=== PATIENT | male | born 1930 | race Caucasian/White ===

== ENCOUNTER 2019-05-27 10:05 | Inpatient (IN) ==
[2019-05-27] MEDS ORDERED: 0.9 % Sodium Chloride 1,000 ML IVC ONE (10:11)
[2019-05-27 10:48] LABS: Basophils % 0.4 %; Eosinophils % 0.9 %; Mean Corpuscular Volume 100.8 fL (83.0-100.0); Monocytes % 14.8 %; Segmented Neutrophils % 67.5 %
[2019-05-27 10:50] LABS: Eosinophils # 0.1 K/mcL (0.0-0.6); Hematocrit 36.2 % (37.5-50.1); Hemoglobin 11.8 g/dL (12.9-16.9); Immature Granulocytes % 0.4 % (0-4); Immature Platelets 6.8 % (1.1-6.1); Lymphocytes # 1.3 K/mcL (0.6-4.6); Mean Corpuscular HGB Conc 32.6 g/dL (31.6-35.5); Mean Corpuscular Hemoglobin 32.9 pg (28.0-33.3); Mean Platelet Volume 11.2 fL (9.4-12.4); Monocytes # 1.2 K/mcL (0.0-1.3); Neutrophils # 5.4 K/mcL (1.6-8.9); Red Blood Count 3.59 M/mcL (4.19-5.50)
[2019-05-27 10:53] LABS: Platelet Count 84 K/mcL (140-400)
[2019-05-27 10:54] LABS: INR 1.1; Prothrombin Time 12.1 Seconds (9.4-12.1)
[2019-05-27 11:08] LABS: Alanine Aminotransferase 16 Units/L (7-52); Albumin 3.7 g/dL (3.5-5.7); Albumin/Globulin Ratio 1.4 (1.1-2.2); Alkaline Phosphatase 63 Units/L (34-104); Aspartate Amino Transferase 20 Units/L (13-39); BUN/Creatinine Ratio 28 (6-26); Bilirubin,Direct 0.2 mg/dL (0.0-0.2); Bilirubin,Indirect 0.6 mg/dL (0.0-1.2); Bilirubin,Total 0.8 mg/dL (0.3-1.0); Blood Urea Nitrogen 44 mg/dL (8-23); Calcium 8.7 mg/dL (8.6-10.3); Carbon Dioxide 25 mEq/L (23-29); Chloride 105 mEq/L (98-107); Creatine Kinase 117 Units/L (30-223); Ethanol < 10 mg/dL (Less than 10); Globulin 2.7 g/dL (2.4-3.5); Glucose 100 mg/dL (70-105); Osmolality,Calculated 299 (280-300); Sodium 139 mEq/L (136-145); Total Protein 6.4 g/dL (6.4-8.9); Troponin I < 0.03 ng/mL (< 0.04); eGFR For African Americans 50 (> 60); eGFR For Non-African Americans 41 (> 60)
--- NOTE | 2019-05-27 11:10 | Emergency Department Note ---
Disposition Clinical Impression: Thrombocytopenia, Acute confusion due to infection Disposition: Admitted As Inpatient Condition: Fair Referrals: Thiago Cid DO [Primary Care Provider] - Forms: ED Satisfaction Letter, Work/School Release Time of Disposition: 13:59 General Adult HPI - General Chief complaint: ED General Medical Stated complaint: confusion Time Seen by Provider: 05/27/19 10:11 Source: patient, EMS Limitations: no limitations Nursing Notes Reviewed: Yes Vital Signs Reviewed: Yes - History of Present Illness HPI Narrative: 89-year-old male seen on Sunday for bleeding somewhere was worked up by Dr. Edgar Jarvis and Dr. Escobedo please see copy their note for details of that encounter patient was discharged with the diagnosis of thrombocytopenia and acute urinary retention which was cleared with Crespo catheter. Patient has been having increasingly altered mental status per daughter and was at bedside he came in by EMS he has been having volitional tremor of his hands that is so severe that he cannot feed himself. He has not been acting himself he has been mostly bedbound for the past 24 hours. This been no blood in his urine or stools this been no fever or vomiting he has been eating although his has to feed him. Drs. Cid is a primary care provider the contacted the office and they recommended that he return to the emergency department for reevaluation and admission Pain Scale: 0 - Related Data Allergies Allergy/AdvReac Type Severity Reaction Status Date / Time amitriptyline [From Elavil] Allergy Agitated Verified 01/21/16 13:07 carisoprodol [From Rela] Allergy Agitated Verified 01/21/16 13:07 hydromorphone [From Dilaudid] Allergy Agitated Verified 01/21/16 13:07 Limitations: ROS unobtainable due to patients medical condition Past Medical History - Past Medical History Attestation: Yes The following information was validated with the patient. Source: old records reviewed, obtained from family Medical history: Reports: hyperlipidemia, other Psychiatric history: Reports: depression - Social History Smoking Status: Former smoker Smokeless Tobacco Status: No Alcohol use: Reports: none Drug use: Reports: none Physical Exam - General Limitations: no limitations General appearance: alert, in no apparent distress - Head Head exam: atraumatic, normocephalic - Eye Eye exam: Present: normal appearance, PERRL, EOMI - ENT ENT exam: normal oropharynx, mucous membranes dry - Neck Neck exam: Present: normal inspection, full ROM - Chest Chest inspection: Present: normal inspection, symmetric chest wall rise - Respiratory Respiratory exam: Present: normal lung sounds bilaterally - Cardiovascular Cardiovascular exam: Present: regular rate, irregular rhythm - Abdominal Exam Abdominal exam: Present: soft, Non-Tender - Extremities Exam Extremities exam: Present: normal inspection, full ROM - Expanded Lower Extremity Exam Neurovascular/Tendon exam: Present: normal capillary refill Gait: not tested/not observed - Back Exam Back exam: Present: normal inspection, full ROM - Neurological Exam Neurological exam: Present: alert (Does not quite know where he is and follow some commands with difficulty) - Psychiatric Psychiatric exam: Present: agitated - Skin Skin exam: Present: warm, dry, intact Course - Reevaluation(s) Reevaluation #1: Patient will undergo ED workup including repeat CT scans of the head and abdomen and pelvis labs chest x-ray urinalysis with a bladder scan. Admission anticipated. Patient's CBC shows a worsening anemia his hemoglobin was 13 it is not 11.8 from 2 days ago platelets are 84,000 or 86,002 days ago. When is a little higher was 33 now to 44 but his creatinine is much improved and was 2.2 on Sunday and it lower today. Awaiting for chest x-ray and CT scans. Ordered. Admission disposition pending Time: 11:25 Reevaluation #2: The workup is complete urinalysis shows too numerous to count RBCs and 15-30 WBCs with urine culture pending discussed case with the hospitalist , except to the patient for admission. Recommended that we also get a set of blood cultures which I did. I gave milligram of Rocephin intravenously for suspected urinary tract infection status post instrumentation with Crespo. The Crespo was per CT scan results and the prostatic urethra had not deflate the balloon and push it forward and reinflate. Crespo is draining. Patient admitted in stable condition Time: 13:57 Vital Signs Temperature 98.4 F 05/27/19 10:08 Pulse Rate 96 05/27/19 10:08 Respiratory Rate 18 05/27/19 10:08 Blood Pressure 157/56 05/27/19 10:08 O2 Sat by Pulse Oximetry 100 05/27/19 10:08 Temperature 98.4 F 05/27/19 10:08 Pulse Rate 94 05/27/19 12:20 Respiratory Rate 20 05/27/19 11:12 Blood Pressure 126/58 05/27/19 12:20 O2 Sat by Pulse Oximetry 98 05/27/19 12:20 Oxygen Delivery Oxygen Delivery Room Air Medical Decision Making - Medical Records Medical records reviewed: Yes I reviewed the patient's medical records. - Lab Data Lab results reviewed: Yes I reviewed the patient's lab results. Result diagrams: 05/27/19 10:27 05/27/19 10:27 Lab Results 05/27/19 05/27/19 05/27/19 Range/Units 10:27 10:27 10:27 WBC 8.0 (4.3-11.1) K/mcL RBC 3.59 L (4.19-5.50) M/mcL Hgb 11.8 L D (12.9-16.9) g/dL Hct 36.2 L (37.5-50.1) % MCV 100.8 H (83.0-100.0) fL MCH 32.9 (28.0-33.3) pg MCHC 32.6 (31.6-35.5) g/dL RDW 13.0 (11.5-14.5) % Plt Count 84 L (140-400) K/mcL MPV 11.2 (9.4-12.4) fL Immature Gran % 0.4 (0-4) % Seg Neutrophils % 67.5 % Lymphocytes % 16.0 % Monocytes % 14.8 % Eosinophils % 0.9 % Basophils % 0.4 % Neutrophils # 5.4 (1.6-8.9) K/mcL Lymphocytes # 1.3 (0.6-4.6) K/mcL Monocytes # 1.2 (0.0-1.3) K/mcL Eosinophils # 0.1 (0.0-0.6) K/mcL Basophils # 0.0 (0.0-0.2) K/mcL Immature Plt Fraction 6.8 H (1.1-6.1) % PT 12.1 (9.4-12.1) Seconds INR 1.1 APTT 46.0 H (26.0-36.0) Seconds Sodium 139 (136-145) mEq/L Potassium 4.0 (3.5-5.1) mEq/L Chloride 105 (98-107) mEq/L Carbon Dioxide 25 (23-29) mEq/L BUN 44 H (8-23) mg/dL Creatinine 1.58 H (0.70-1.30) mg/dL Est GFR ( Amer) 50 L (> 60) Est GFR (Non-Af Amer) 41 L (> 60) BUN/Creatinine Ratio 28 H (6-26) Glucose 100 (70-105) mg/dL Calculated Osmolality 299 (280-300) Calcium 8.7 (8.6-10.3) mg/dL Total Bilirubin 0.8 (0.3-1.0) mg/dL Direct Bilirubin 0.2 (0.0-0.2) mg/dL Indirect Bilirubin 0.6 (0.0-1.2) mg/dL AST 20 (13-39) Units/L ALT 16 (7-52) Units/L Alkaline Phosphatase 63 (34-104) Units/L Ammonia (16-53) mcmol/L Creatine Kinase 117 (30-223) Units/L Troponin I < 0.03 (< 0.04) ng/mL Serum Total Protein 6.4 (6.4-8.9) g/dL Albumin 3.7 (3.5-5.7) g/dL Globulin 2.7 (2.4-3.5) g/dL Albumin/Globulin Ratio 1.4 (1.1-2.2) TSH (0.340-5.600) mcIU/mL Urine Color (Yellow) Urine Clarity (Clear) Urine pH (5.0-8.0) pH Units Ur Specific [place] (1.010-1.025) Urine Protein (Neg-Trace) mg/dL Urine Glucose (UA) (Normal) mg/dL Urine Ketones (Negative) mg/dL Urine Blood (Negative) Urine Nitrite (Negative) Urine Bilirubin (Negative) Urine Urobilinogen (Normal) mg/dL Ur Leukocyte Esterase (Negative) Urine Microscopic RBC (0-3) per hpf Urine Microscopic WBC (0-3) per hpf Ur Squamous Epith Cells (None-Few) per lpf Urine Bacteria (None-Few) per hpf Hyaline Casts (None-Few) per lpf Ur Culture Indicated? (NO) Urine Opiates Screen (Jouyjl=854) ng/mL Ur Buprenorphine Scrn (Cutoff=5) ng/mL Ur Barbiturates Screen (Oyyzjf=372) ng/mL Ur Phencyclidine Scrn (Cutoff=25) ng/mL Ur Amphetamines Screen (Gzunhb=2581) ng/mL U Benzodiazepines Scrn (Rqqunl=699) ng/mL Urine Cocaine Screen (Cutoff= 300) ng/mL U Marijuana (THC) Screen (Cutoff = 50) ng/mL Ur Drug Screen Interp Ethyl Alcohol < 10 (Less than 10) mg/dL 05/27/19 05/27/19 05/27/19 Range/Units 10:27 10:27 13:21 WBC (4.3-11.1) K/mcL RBC (4.19-5.50) M/mcL Hgb (12.9-16.9) g/dL Hct (37.5-50.1) % MCV (83.0-100.0) fL MCH (28.0-33.3) pg MCHC (31.6-35.5) g/dL RDW (11.5-14.5) % Plt Count (140-400) K/mcL MPV (9.4-12.4) fL Immature Gran % (0-4) % Seg Neutrophils % % Lymphocytes % % Monocytes % % Eosinophils % % Basophils % % Neutrophils # (1.6-8.9) K/mcL Lymphocytes # (0.6-4.6) K/mcL Monocytes # (0.0-1.3) K/mcL Eosinophils # (0.0-0.6) K/mcL Basophils # (0.0-0.2) K/mcL Immature Plt Fraction (1.1-6.1) % PT (9.4-12.1) Seconds INR APTT (26.0-36.0) Seconds Sodium (136-145) mEq/L Potassium (3.5-5.1) mEq/L Chloride (98-107) mEq/L Carbon Dioxide (23-29) mEq/L BUN (8-23) mg/dL Creatinine (0.70-1.30) mg/dL Est GFR ( Amer) (> 60) Est GFR (Non-Af Amer) (> 60) BUN/Creatinine Ratio (6-26) Glucose (70-105) mg/dL Calculated Osmolality (280-300) Calcium (8.6-10.3) mg/dL Total Bilirubin (0.3-1.0) mg/dL Direct Bilirubin (0.0-0.2) mg/dL Indirect Bilirubin (0.0-1.2) mg/dL AST (13-39) Units/L ALT (7-52) Units/L Alkaline Phosphatase (34-104) Units/L Ammonia 27 (16-53) mcmol/L Creatine Kinase (30-223) Units/L Troponin I (< 0.04) ng/mL Serum Total Protein (6.4-8.9) g/dL Albumin (3.5-5.7) g/dL Globulin (2.4-3.5) g/dL Albumin/Globulin Ratio (1.1-2.2) TSH 2.295 (0.340-5.600) mcIU/mL Urine Color Yellow (Yellow) Urine Clarity Cloudy A (Clear) Urine pH 6.0 (5.0-8.0) pH Units Ur Specific [place] 1.022 (1.010-1.025) Urine Protein 100 H (Neg-Trace) mg/dL Urine Glucose (UA) Normal (Normal) mg/dL Urine Ketones 15 H (Negative) mg/dL Urine Blood Large H (Negative) Urine Nitrite Negative (Negative) Urine Bilirubin Negative (Negative) Urine Urobilinogen 2.0 H (Normal) mg/dL Ur Leukocyte Esterase Moderate H (Negative) Urine Microscopic RBC TNTC H (0-3) per hpf Urine Microscopic WBC 15-30 H (0-3) per hpf Ur Squamous Epith Cells Many H (None-Few) per lpf Urine Bacteria None Seen (None-Few) per hpf Hyaline Casts None Seen (None-Few) per lpf Ur Culture Indicated? YES A (NO) Urine Opiates Screen (Diyhqg=227) ng/mL Ur Buprenorphine Scrn (Cutoff=5) ng/mL Ur Barbiturates Screen (Pytngh=310) ng/mL Ur Phencyclidine Scrn (Cutoff=25) ng/mL Ur Amphetamines Screen (Ughmbq=2610) ng/mL U Benzodiazepines Scrn (Tekwpq=880) ng/mL Urine Cocaine Screen (Cutoff= 300) ng/mL U Marijuana (THC) Screen (Cutoff = 50) ng/mL Ur Drug Screen Interp Ethyl Alcohol (Less than 10) mg/dL 05/27/19 Range/Units 13:21 WBC (4.3-11.1) K/mcL RBC (4.19-5.50) M/mcL Hgb (12.9-16.9) g/dL Hct (37.5-50.1) % MCV (83.0-100.0) fL MCH (28.0-33.3) pg MCHC (31.6-35.5) g/dL RDW (11.5-14.5) % Plt Count (140-400) K/mcL MPV (9.4-12.4) fL Immature Gran % (0-4) % Seg Neutrophils % % Lymphocytes % % Monocytes % % Eosinophils % % Basophils % % Neutrophils # (1.6-8.9) K/mcL Lymphocytes # (0.6-4.6) K/mcL Monocytes # (0.0-1.3) K/mcL Eosinophils # (0.0-0.6) K/mcL Basophils # (0.0-0.2) K/mcL Immature Plt Fraction (1.1-6.1) % PT (9.4-12.1) Seconds INR APTT (26.0-36.0) Seconds Sodium (136-145) mEq/L Potassium (3.5-5.1) mEq/L Chloride (98-107) mEq/L Carbon Dioxide (23-29) mEq/L BUN (8-23) mg/dL Creatinine (0.70-1.30) mg/dL Est GFR ( Amer) (> 60) Est GFR (Non-Af Amer) (> 60) BUN/Creatinine Ratio (6-26) Glucose (70-105) mg/dL Calculated Osmolality (280-300) Calcium (8.6-10.3) mg/dL Total Bilirubin (0.3-1.0) mg/dL Direct Bilirubin (0.0-0.2) mg/dL Indirect Bilirubin (0.0-1.2) mg/dL AST (13-39) Units/L ALT (7-52) Units/L Alkaline Phosphatase (34-104) Units/L Ammonia (16-53) mcmol/L Creatine Kinase (30-223) Units/L Troponin I (< 0.04) ng/mL Serum Total Protein (6.4-8.9) g/dL Albumin (3.5-5.7) g/dL Globulin (2.4-3.5) g/dL Albumin/Globulin Ratio (1.1-2.2) TSH (0.340-5.600) mcIU/mL Urine Color (Yellow) Urine Clarity (Clear) Urine pH (5.0-8.0) pH Units Ur Specific [place] (1.010-1.025) Urine Protein (Neg-Trace) mg/dL Urine Glucose (UA) (Normal) mg/dL Urine Ketones (Negative) mg/dL Urine Blood (Negative) Urine Nitrite (Negative) Urine Bilirubin (Negative) Urine Urobilinogen (Normal) mg/dL Ur Leukocyte Esterase (Negative) Urine Microscopic RBC (0-3) per hpf Urine Microscopic WBC (0-3) per hpf Ur Squamous Epith Cells (None-Few) per lpf Urine Bacteria (None-Few) per hpf Hyaline Casts (None-Few) per lpf Ur Culture Indicated? (NO) Urine Opiates Screen Negative (Dwamrl=810) ng/mL Ur Buprenorphine Scrn Negative (Cutoff=5) ng/mL Ur Barbiturates Screen Negative (Tkjzjd=455) ng/mL Ur Phencyclidine Scrn Negative (Cutoff=25) ng/mL Ur Amphetamines Screen Negative (Ygcjcn=1872) ng/mL U Benzodiazepines Scrn Negative (Mizqty=045) ng/mL Urine Cocaine Screen Negative (Cutoff= 300) ng/mL U Marijuana (THC) Screen Negative (Cutoff = 50) ng/mL Ur Drug Screen Interp See Below Ethyl Alcohol (Less than 10) mg/dL - Radiology Data Radiology results reviewed: Yes I reviewed the patient's radiology results. - EKG Data EKG #1 EKG attestation: Yes I reviewed and interpreted this EKG. EKG results narrative: Twelve-lead EKG interpreted without the benefit of Cardiologic assistance shows atrial fibrillation rate controlled at 94 bpm no acute ischemic changes noted. No acute changes when compared to prior EKG dated 01/21/2016
[2019-05-27 13:31] LABS: Bilirubin,Urine Negative (Negative); Blood,Urine Large (Negative); Clarity,Urine Cloudy (Clear); Color,Urine Yellow (Yellow); Glucose,Urine (UA) Normal (Normal); Ketones,Urine 15 mg/dL (Negative); Leukocyte Esterase,Urine Moderate (Negative); Nitrite,Urine Negative (Negative); Protein,Urine 100 mg/dL (Neg-Trace); Specific Gravity,Urine 1.022 (1.010-1.025)
[2019-05-27 13:32] LABS: Bacteria,Urine None Seen per hpf (None-Few); Hyaline Casts,Urine None Seen per lpf (None-Few); RBC,Urine TNTC per hpf (0-3); Squamous Epithelial Cell,Urine Many per lpf (None-Few); WBC,Urine 15-30 per hpf (0-3)
[2019-05-27 13:42] LABS: Amphetamine Screen,Urine Negative ng/mL (Cutoff=1000); Barbiturate Screen,Urine Negative ng/mL (Cutoff=200); Benzodiazepines Screen,Urine Negative ng/mL (Cutoff=200); Cannabinoid Screen,Urine Negative ng/mL (Cutoff = 50); Cocaine Screen,Urine Negative ng/mL (Cutoff= 300); Opiate Screen,Urine Negative ng/mL (Cutoff=300); Phencyclidine Screen,Urine Negative ng/mL (Cutoff=25)
[2019-05-27] MEDS ORDERED: cefTRIAXone 1,000 MG in 0.9 % Sodium Chloride Mini Bag 100 ML IVPB ONE (13:56)
[2019-05-27] MEDS ORDERED: Naloxone 0.4 MG/ML INJ IVP PRN (14:45)
[2019-05-27] MEDS ORDERED: Ondansetron ODT 4 MG TAB.RAPDIS SL PRN (14:45)
[2019-05-27 16:58] LABS: Thyroid Stimulating Hormone 1.391 mcIU/mL (0.340-5.600)
--- NOTE | 2019-05-27 18:16 | Urology - Consult Note ---
Date of Encounter: 05/27/19 Time of Encounter: 18:16 - Assessment and Plan (1) Bladder mass Current Visit: Yes Status: Acute Assessment and plan: Upon review of the CT scan I am unsure if the mass within the bladder is a blood clot, enlarged prostate or bladder mass. At this time the patient's urine is clear and he had a urinalysis prior to admission which showed no blood. Recommend at this time to continue with catheter no urgent need for cystoscopy. (2) Elevated serum creatinine Current Visit: Yes Status: Acute Assessment and plan: Patient serum creatinine appears at baseline. (3) Acute confusion Current Visit: Yes Status: Acute Assessment and plan: Unsure of cause of confusion at this time. Patient's urinalysis not necessarily consistent with infection. Await urine culture (4) Acute urinary retention Current Visit: No Status: Acute Assessment and plan: Patient will continue with catheterization at this time. Patient will require cystoscopic evaluation of his bladder in the future. Based on CT scan findings I have some concern that he could have a neurogenic bladder and has had long- standing urinary retention. I discussed this with the patient's family. We will continue to follow along closely. Urology CN:HPI Consult date: 05/27/19 Reason for consult Urology: Other (urinary retention) Requesting physician: King Sweeney History of present illness: Jan is a 89-year-old male who was recently in the emergency department 2 days ago secondary to inability to void. Catheter was placed with an unknown volume of urine drained. Patient had a CT scan performed at that time which showed a thickened bladder wall as well as markedly enlarged prostate. History is difficult to obtain secondary to patient mental status. All history was obtained from family. According the patient's family he had a TURP performed in 1997 and then subsequently had another TURP performed in 2005. Patient believes that he has been having some trouble with voiding for the past few weeks if not months. He did an increase in nocturia as well as post void dribbling. Patient's mental status significantly declined today and he was brought to the emergency department. Urinalysis was consistent with recent catheterization but not necessarily an infection at this time. Awaiting urine culture. Repeat CT scan showed thickened bladder wall with possible bladder mass versus enlarged prostate. Past Med Surg Social Fam HX - Past Medical History Medical history: hyperlipidemia, other Additional medical history: vagal nerve response Psychiatric history: depression - Past Surgical History Additional surgical history: hemroid surg - Social History Smoking Status: Former smoker Smokeless Tobacco Status: No Alcohol use: none Drug use: none - Family History Son Name: Son with history of urinary retention. Medications and Allergies Doxepin 150 mg PO QPM 05/27/19 [History] Lovastatin 40 mg PO DAILY 05/27/19 [History] Allergy/AdvReac Type Severity Reaction Status Date / Time amitriptyline [From Elavil] Allergy Agitated Verified 01/21/16 13:07 carisoprodol [From Rela] Allergy Agitated Verified 01/21/16 13:07 hydromorphone [From Dilaudid] Allergy Agitated Verified 01/21/16 13:07 Review of Systems ROS unobtainable: due to mental status Exam Initial Vital Signs Temp Pulse Resp BP Pulse Ox 98.4 F 96 18 157/56 100 05/27/19 10:08 05/27/19 10:08 05/27/19 10:08 05/27/19 10:08 05/27/19 10:08 General/Neuological: Patient awake but not oriented Eyes: normal pupils, non-icteric Neck: no lymphadenopathy noted, supple to touch Cardiovascular: RRR, no murmurs Respiratory: normal respiratory effort, clear bilaterally ABD: soft, nontender, no masses palpated, good bowel sounds Back: no pain on percussion bilaterally : normal phallus, normal scrotum, testicles and epididymides normal, urethral meatus normal. Catheter in place draining clear urine Skin: no rashes noted Musculoskeletal: Full range of motion 4, patient with tremor of upper extremity with hands clapping Urology Results - Labs 05/27/19 10:27 05/27/19 10:27 Abnormal lab results RBC 3.59 M/mcL (4.19-5.50) L 05/27/19 10:27 Hgb 11.8 g/dL (12.9-16.9) L D 05/27/19 10:27 Hct 36.2 % (37.5-50.1) L 05/27/19 10:27 MCV 100.8 fL (83.0-100.0) H 05/27/19 10:27 Plt Count 84 K/mcL (140-400) L 05/27/19 10:27 Immature Plt Fraction 6.8 % (1.1-6.1) H 05/27/19 10:27 ESR 13 mm/hr (0-10) H 05/27/19 16:06 APTT 46.0 Seconds (26.0-36.0) H 05/27/19 10:27 BUN 44 mg/dL (8-23) H 05/27/19 10:27 1.58 mg/dL (0.70-1.30) H 05/27/19 10:27 Est GFR ( Amer) 50 (> 60) L 05/27/19 10:27 Est GFR (Non-Af Amer) 41 (> 60) L 05/27/19 10:27 28 (6-26) H 05/27/19 10:27 30 mg/L (Less than 10) H 05/27/19 16:06 Cloudy (Clear) A 05/27/19 13:21 100 mg/dL (Neg-Trace) H 05/27/19 13:21 15 mg/dL (Negative) H 05/27/19 13:21 Large (Negative) H 05/27/19 13:21 2.0 mg/dL (Normal) H 05/27/19 13:21 Ur Leukocyte Esterase Moderate (Negative) H 05/27/19 13:21 TNTC per hpf (0-3) H 05/27/19 13:21 15-30 per hpf (0-3) H 05/27/19 13:21 Ur Squamous Epith Cells Many per lpf (None-Few) H 05/27/19 13:21 Ur Culture Indicated? YES (NO) A 05/27/19 13:21 Diabetes panel 05/27/19 Range/Units 10:27 Sodium 139 (136-145) mEq/L Potassium 4.0 (3.5-5.1) mEq/L Chloride 105 (98-107) mEq/L Carbon Dioxide 25 (23-29) mEq/L BUN 44 H (8-23) mg/dL Creatinine 1.58 H (0.70-1.30) mg/dL Glucose 100 (70-105) mg/dL Calcium 8.7 (8.6-10.3) mg/dL AST 20 (13-39) Units/L ALT 16 (7-52) Units/L Alkaline Phosphatase 63 (34-104) Units/L Albumin 3.7 (3.5-5.7) g/dL Thyroid panel 05/27/19 05/27/19 Range/Units 10:27 16:06 TSH 2.295 1.391 (0.340-5.600) mcIU/mL Calcium panel 05/27/19 Range/Units 10:27 Calcium 8.7 (8.6-10.3) mg/dL Albumin 3.7 (3.5-5.7) g/dL Pituitary panel 05/27/19 05/27/19 05/27/19 Range/Units 10:27 10:27 16:06 Sodium 139 (136-145) mEq/L Potassium 4.0 (3.5-5.1) mEq/L Chloride 105 (98-107) mEq/L Carbon Dioxide 25 (23-29) mEq/L BUN 44 H (8-23) mg/dL Creatinine 1.58 H (0.70-1.30) mg/dL Glucose 100 (70-105) mg/dL Calcium 8.7 (8.6-10.3) mg/dL TSH 2.295 1.391 (0.340-5.600) mcIU/mL Adrenal panel 05/27/19 Range/Units 10:27 Sodium 139 (136-145) mEq/L Potassium 4.0 (3.5-5.1) mEq/L Chloride 105 (98-107) mEq/L Carbon Dioxide 25 (23-29) mEq/L BUN 44 H (8-23) mg/dL Creatinine 1.58 H (0.70-1.30) mg/dL Glucose 100 (70-105) mg/dL Calcium 8.7 (8.6-10.3) mg/dL Total Bilirubin 0.8 (0.3-1.0) mg/dL AST 20 (13-39) Units/L ALT 16 (7-52) Units/L Alkaline Phosphatase 63 (34-104) Units/L Albumin 3.7 (3.5-5.7) g/dL All other labs normal. - Imaging CT scan - abdomen: image reviewed CT scan - pelvis: image reviewed Consult Discharge Plan - Plan Referrals: Thiago Cid DO [Primary Care Provider] -
--- NOTE | 2019-05-27 18:55 | Internal Med History&Physical ---
Date of Encounter: 05/27/19 Time of Encounter: 18:42 Internal Medicine - H&P: HPI Chief complaint: Encephalopathy Admitted From: Home Plans for Post Hospital Care: Home History of present illness: Mr. Ibanez is a 89 year old male with history of insomnia, nighttime confusion, and possibly dementia presents with encephalopathy and acute urinary retention. Family notes worsening of confusion over the last 2 weeks which has been rapidly progressive for the last couple days. He has not been acting normally. Not speaking to family. Has a tremor that the family is concerned about. Always playing with his hands and fidgeting. Has not been eating and daughter says that patient has lost 9 pounds in last week. Has not been taking his medications (doxepin and Lovastatin) because whenever his family choose to give him his medications he clenches his teeth. Went to PCP last week and referred to ED for head CT which was within normal limits. Also treated for presumed UTI with nitrofurantoin and completed a 5 day course without improvement of symptoms. Over the next several days, patient's condition progressed rapidly with regards to worsening confusion. Started to experience suprapubic abdominal pain and u rinary retention. Went to ED 05/25 and Crespo placed with over a liter and drainage. Discharge with Crespo from the ED to follow-up with urology however confusion worsened this in the interim so family brought patient to the ED today. In the ED, vital signs stable. No leukocytosis. Platelet count of 84, which is new for patient over the last week. Creatinine of 1.58, which is actually patient's baseline. BUN 28. UDS negative. UA with mild positivity and reflex to culture. CT abdomen and pelvis with large prostate and mass in the bladder that could not be further delineated. Chest x-ray is within normal limits. Admitted to medicine. Past Med Surg Social Fam HX - Past Medical History Medical history: hyperlipidemia, other Additional medical history: vagal nerve response Psychiatric history: depression - Past Surgical History Additional surgical history: hemroid surg - Social History Smoking Status: Former smoker Smokeless Tobacco Status: No Alcohol use: none Drug use: none - Family History Brother Name: Son with history of urinary retention. Hx Family Cardiac Disorders: Yes Internal Medicine - H&P: Meds Doxepin 150 mg PO QPM 05/27/19 [History] Lovastatin 40 mg PO DAILY 05/27/19 [History] Allergy/AdvReac Type Severity Reaction Status Date / Time amitriptyline [From Elavil] Allergy Agitated Verified 01/21/16 13:07 carisoprodol [From Rela] Allergy Agitated Verified 01/21/16 13:07 hydromorphone [From Dilaudid] Allergy Agitated Verified 01/21/16 13:07 ROS unobtainable: due to mental status All Systems PM: A 10-system review of systems was performed and is negative for pertinent findi ngs except as documented above in the HPI. - Constitutional Vitals: Temp Pulse Resp BP Pulse Ox 98.4 F 91 16 143/63 98 05/27/19 15:20 05/27/19 15:20 05/27/19 15:20 05/27/19 15:20 05/27/19 15:20 Exam: General: Ill-appearing and in no acute distress. Fidgety with hands. HEENT: No erythema of posterior pharynx. No exudates. Lymphatics: No mandibular or cervical lymphadenopathy Cardiovascular: RRR. No murmurs. No chest wall tenderness. Lungs: Clear to auscelltation bilaterally. Regular chest rise. Abdomen: Non-tender. No rebound or gaurding. Nl bowel sounds. Extremities: No edema. 2+ pulses radial and pedal pulses Skin: No rahses, abrasions, or contusions. Nl cap refill. Psych: Poor attention but does follow commands. Alert but only oriented to person and place. Neuro: voip network technician II-XII intact. 5/5 strength. No PD. No asterixis. Sensation to light touch and pinprick intact. Internal Med - H&P Results - Labs CBC & Chem 7: 05/27/19 10:27 05/27/19 10:27 Labs: Short CBC 05/27/19 Range/Units 10:27 WBC 8.0 (4.3-11.1) K/mcL Hgb 11.8 L D (12.9-16.9) g/dL Hct 36.2 L (37.5-50.1) % Plt Count 84 L (140-400) K/mcL Neutrophils # 5.4 (1.6-8.9) K/mcL BMP 05/27/19 10:27 Sodium 139 Potassium 4.0 Chloride 105 Carbon Dioxide 25 BUN 44 H Creatinine 1.58 H Glucose 100 Calcium 8.7 Cardiac Enzymes 05/27/19 Range/Units 10:27 Troponin I < 0.03 (< 0.04) ng/mL Liver Function 05/27/19 Range/Units 10:27 Total Bilirubin 0.8 (0.3-1.0) mg/dL Direct Bilirubin 0.2 (0.0-0.2) mg/dL AST 20 (13-39) Units/L ALT 16 (7-52) Units/L Alkaline Phosphatase 63 (34-104) Units/L Albumin 3.7 (3.5-5.7) g/dL Urine 05/27/19 Range/Units 13:21 Urine Color Yellow (Yellow) Urine Clarity Cloudy A (Clear) Urine pH 6.0 (5.0-8.0) pH Units Ur Specific [place] 1.022 (1.010-1.025) Urine Protein 100 H (Neg-Trace) mg/dL Urine Glucose (UA) Normal (Normal) mg/dL - Impressions ITS Impressions Chest X-Ray 05/27/19 10:11 IMPRESSION: 1. No active pulmonary disease. D/ / Branden Moreno MD / Branden Moreno MD Interpreting Provider: Branden Moreno MD Abdomen/Pelvis CT 05/27/19 10:28 IMPRESSION: Enlarged prostate gland with Crespo catheter balloon likely within the prostatic urethra. Decompressed bladder with irregular bladder wall thickening likely related to chronic bladder outlet obstruction. However, suspected hemorrhage in the bladder is also noted. Cystoscopy should be considered to exclude bladder mass. No urinary tract stones or hydronephrosis. Hyperdense lesions in both kidneys most likely representing hemorrhagic cysts. Recommend renal mass protocol CT or MRI for definitive evaluation. No evidence of bowel obstruction. Large amount of stool throughout the colon suggesting constipation. Mild improvement of bowel distention compared to prior exam. Wall thickening of the rectum. This is nonspecific. Recommend colonoscopy if not already performed. D/ / 05/27/2019 12:27:48 Pravin Vargas MD / yasir Interpreting Provider: Pravin Vargas MD Head CT 05/27/19 11:17 IMPRESSION: No acute intracranial abnormality. D/ / Colton Harden MD / Colton Harden MD Interpreting Provider: Colton Harden MD - Assessment and Plan (1) Acute metabolic encephalopathy Current Visit: Yes Status: Acute Assessment and plan: Patient with history of insomnia on doxepin, nighttime confusion, and possibly dementia presents with subacute encephalopathy in the setting of acute urinary retention, normal vitals on admission, physical exam with poor attention, disorientation, and fidgeting with hands but no asterixis or other notable neurological findings, UA mildly positive for infection, and extensive imaging with only a potential bladder mass identified. -Unclear source of patient's encephalopathy -Most likely diagnosis at this time would be urinary tract infection causing encephalopathy however UA was underwhelming -Query whether long-term doxepin use leading to urinary retention and, in turn, leading to a care and further toxicity from doxepin could be related to patient's presentation -Uremia could conceivably be contributing given urinary retention but kidney function has now trended back to normal and symptoms persist -Fidgeting appears consistent with metabolic process such as hepatic encephalopathy but no history of liver disease. We will check ammonia. -Low suspicion for vascular event given no focal deficits and head CT normal -We will check TSH -Suspicion for seizure low -New thrombocytopenia so we will get a peripheral smear to look for schistocytes assessing for TTP -Low concern for central infectious process given no white count, fever, etc. -Query whether inflammatory process or paraneoplastic process (given bladder mass) could be at play given unusual presentation and will assess for this although paraneoplastic syndromes unlikely with bladder cancer PLAN: - Ceftriaxone 1g q24 - HOLD doxepin - Ammonia level - TSH - Peripheral smear - ESR/CRP - Paraneoplastic panel - If not improved with IV antibiotics after 24hrs would consider neuro consult (2) Acute urinary retention Current Visit: No Status: Acute Assessment and plan: Unclear cause. Some of this likely chronic. Concern for bladder mass. - Urology consulting (3) CKD (chronic kidney disease), stage III Current Visit: Yes Status: Acute Assessment and plan: At baseline (4) Bladder mass Current Visit: Yes Status: Acute (5) Thrombocytopenia Current Visit: Yes Status: Acute Assessment and plan: Cause unclear. In setting of encephalopathy prudent to rule out TTP and a peripheral smear will be ordered and reviewed - Time Spent With Patient Total time spent is greater than 50% in coordination of care (as documented) at patient's floor/unit and/or counseling patient: Greater than 35 minutes
[2019-05-27] MEDS ORDERED: Bisacodyl 10 MG RECTAL SUPPOSITORY RC SCH (21:00)
[2019-05-28 06:27] LABS: Basophils % 0.2 %; Red Cell Distribution Width 12.9 % (11.5-14.5)
[2019-05-28 06:29] LABS: Eosinophils # 0.1 K/mcL (0.0-0.6); Eosinophils % 1.5 %; Hematocrit 34.2 % (37.5-50.1); Hemoglobin 11.2 g/dL (12.9-16.9); Immature Granulocytes % 0.3 % (0-4); Lymphocytes # 1.2 K/mcL (0.6-4.6); Lymphocytes % 20.2 %; Mean Corpuscular HGB Conc 32.7 g/dL (31.6-35.5); Mean Corpuscular Hemoglobin 33.3 pg (28.0-33.3); Mean Corpuscular Volume 101.8 fL (83.0-100.0); Mean Platelet Volume 11.6 fL (9.4-12.4); Monocytes # 0.8 K/mcL (0.0-1.3); Monocytes % 13.8 %; Neutrophils # 3.8 K/mcL (1.6-8.9); Red Blood Count 3.36 M/mcL (4.19-5.50); White Blood Count 5.9 K/mcL (4.3-11.1)
[2019-05-28 06:42] LABS: Platelet Count 79 K/mcL (140-400)
[2019-05-28 06:53] LABS: BUN/Creatinine Ratio 30 (6-26); Blood Urea Nitrogen 40 mg/dL (8-23); Calcium 8.8 mg/dL (8.6-10.3); Carbon Dioxide 25 mEq/L (23-29); Chloride 106 mEq/L (98-107); Glucose 98 mg/dL (70-105); Osmolality,Calculated 308 (280-300); Potassium 4.2 mEq/L (3.5-5.1); Sodium 144 mEq/L (136-145); eGFR For African Americans > 60 (> 60); eGFR For Non-African Americans 51 (> 60)
[2019-05-28] MEDS: cefTRIAXone 1,000 MG in Water for inj. (sterile) 10 ML IVP SCH (08:48)
--- NOTE | 2019-05-28 08:50 | Urology Progress Note ---
Date of Encounter: 05/28/19 Time of Encounter: 08:48 - Assessment and Plan (1) Bladder mass Current Visit: Yes Status: Acute (2) Elevated serum creatinine Current Visit: Yes Status: Acute Assessment and plan: Appears improving. (3) Acute confusion Current Visit: Yes Status: Acute Assessment and plan: Appears improving at this time. (4) Acute urinary retention Current Visit: No Status: Acute Assessment and plan: We will continue with catheter at this time. No urgent need for cystoscopy. Progress Note Narrative: patient seen this am. Patient appears to have slightly improved mentation. Good urine output. Objective Initial Vital Signs Temp Pulse Resp BP Pulse Ox 98.4 F 96 18 157/56 100 05/27/19 10:08 05/27/19 10:08 05/27/19 10:08 05/27/19 10:08 05/27/19 10:08 - General physical appearance Present: well developed, well nourished - Abdomen Present: soft. Absent: tender - Genitourinary Present: other (Clear urine) - Labs 05/28/19 05:38 05/28/19 05:38 Diabetes panel 05/27/19 05/28/19 Range/Units 10:27 05:38 Sodium 139 144 (136-145) mEq/L Potassium 4.0 4.2 (3.5-5.1) mEq/L Chloride 105 106 (98-107) mEq/L Carbon Dioxide 25 25 (23-29) mEq/L BUN 44 H 40 H (8-23) mg/dL Creatinine 1.58 H 1.32 H (0.70-1.30) mg/dL Glucose 100 98 (70-105) mg/dL Calcium 8.7 8.8 (8.6-10.3) mg/dL AST 20 (13-39) Units/L ALT 16 (7-52) Units/L Alkaline Phosphatase 63 (34-104) Units/L Albumin 3.7 (3.5-5.7) g/dL Thyroid panel 05/27/19 05/27/19 Range/Units 10:27 16:06 TSH 2.295 1.391 (0.340-5.600) mcIU/mL Calcium panel 05/27/19 05/28/19 Range/Units 10:27 05:38 Calcium 8.7 8.8 (8.6-10.3) mg/dL Albumin 3.7 (3.5-5.7) g/dL Pituitary panel 05/27/19 05/27/19 05/27/19 Range/Units 10:27 10:27 16:06 Sodium 139 (136-145) mEq/L Potassium 4.0 (3.5-5.1) mEq/L Chloride 105 (98-107) mEq/L Carbon Dioxide 25 (23-29) mEq/L BUN 44 H (8-23) mg/dL Creatinine 1.58 H (0.70-1.30) mg/dL Glucose 100 (70-105) mg/dL Calcium 8.7 (8.6-10.3) mg/dL TSH 2.295 1.391 (0.340-5.600) mcIU/mL 05/28/19 Range/Units 05:38 Sodium 144 (136-145) mEq/L Potassium 4.2 (3.5-5.1) mEq/L Chloride 106 (98-107) mEq/L Carbon Dioxide 25 (23-29) mEq/L BUN 40 H (8-23) mg/dL Creatinine 1.32 H (0.70-1.30) mg/dL Glucose 98 (70-105) mg/dL Calcium 8.8 (8.6-10.3) mg/dL TSH (0.340-5.600) mcIU/mL Adrenal panel 05/27/19 05/28/19 Range/Units 10:27 05:38 Sodium 139 144 (136-145) mEq/L Potassium 4.0 4.2 (3.5-5.1) mEq/L Chloride 105 106 (98-107) mEq/L Carbon Dioxide 25 25 (23-29) mEq/L BUN 44 H 40 H (8-23) mg/dL Creatinine 1.58 H 1.32 H (0.70-1.30) mg/dL Glucose 100 98 (70-105) mg/dL Calcium 8.7 8.8 (8.6-10.3) mg/dL Total Bilirubin 0.8 (0.3-1.0) mg/dL AST 20 (13-39) Units/L ALT 16 (7-52) Units/L Alkaline Phosphatase 63 (34-104) Units/L Albumin 3.7 (3.5-5.7) g/dL Consult Discharge Plan - Plan Referrals: Thiago Cid DO [Primary Care Provider] -
--- NOTE | 2019-05-28 10:24 | Internal Med Progress Note ---
Hospitalist Progress Note - Encounter Date of Encounter: 05/28/19 Time of Encounter: 10:24 - Subjective Interval History: I have seen and evaluated the patient at bedside with his family members present. as per per patient's daughter and his the patient has been experiencing slow deterioration in his mental status for the past years but it has been accentuated in the past 2-3 years and it worsened significantly the past 2 weeks. They denied if the patient has had a formal dementia screening in the past. - Exam Vitals: Temp Pulse Resp BP Pulse Ox 98.7 F 89 16 154/90 98 05/28/19 06:48 05/28/19 06:48 05/28/19 06:48 05/28/19 06:48 05/28/19 06:48 Exam: Vitals: Reviewed General: Alert and oriented x1. In no distress. Cardiovascular: RRR, normal S1 & S2, no rubs, murmurs or gallops. Lungs: CTA b/l, no wheezes or crackles. Abdomen: Soft, non-tender, no rigidity. Extremities: No edema Neurological: Resting tremors Rest of the physical exam is non contributory - Assessment and Plan (1) Acute urinary retention Current Visit: No Status: Acute Assessment and Plan: patient s/p concepcion catheter placement. Concepcion catheter management per urology recommendations per urology there is no indication for acute cystoscopy (2) Bladder mass Current Visit: Yes Status: Suspected Assessment and Plan: plan of care as above (3) Thrombocytopenia Current Visit: Yes Status: Chronic Assessment and Plan: will continue to monitor. no signs of acute bleeding. (4) Acute metabolic encephalopathy Current Visit: Yes Status: Suspected (5) CKD (chronic kidney disease), stage III Current Visit: Yes Status: Acute Assessment and Plan: possible secondary to urinary retention. kidney function continues to improve with Concepcion catheter placement. will continue to monitor kidney function avoid nephrotoxic medications (6) Parkinson disease Current Visit: Yes Status: Chronic (7) UTI (urinary tract infection) Current Visit: Yes Status: Suspected Assessment and Plan: patient recently completed oral treatment for possible UTI. will treat patient for possible UTI due to patient worsening mental status improving on IV antibiotics on ceftriaxone 1gm/IV daily Urine culture: pending final report (8) Depression Current Visit: Yes Status: Chronic Assessment and Plan: On Doxepin (9) HLD (hyperlipidemia) Current Visit: Yes Status: Chronic Assessment and Plan: resume home dose of lovastatin DVT Prophylaxis: Heparin subq - Summary of Assessment and Plan Summary of Assessment and Plan: patient to remain in the hospital pending PT/OT eval and Urine culture final report. Potential discharge tomorrow - Time Spent with Patient Total time spent is greater than 50% in coordination of care (as documented) at patient's floor/unit and/or counseling patient: Greater than 35 minutes (40) Plan of Care Discussed with: family (and the nurse) Internal Medicine: Result - Labs CBC & Chem 7: 05/28/19 05:38 05/28/19 05:38 Labs: Short CBC 05/27/19 05/28/19 Range/Units 10:27 05:38 WBC 8.0 5.9 (4.3-11.1) K/mcL Hgb 11.8 L D 11.2 L (12.9-16.9) g/dL Hct 36.2 L 34.2 L (37.5-50.1) % Plt Count 84 L 79 L (140-400) K/mcL Neutrophils # 5.4 3.8 (1.6-8.9) K/mcL BMP 05/27/19 05/28/19 10:27 05:38 Sodium 139 144 Potassium 4.0 4.2 Chloride 105 106 Carbon Dioxide 25 25 BUN 44 H 40 H Creatinine 1.58 H 1.32 H Glucose 100 98 Calcium 8.7 8.8 Cardiac Enzymes 05/27/19 Range/Units 10:27 Troponin I < 0.03 (< 0.04) ng/mL Liver Function 05/27/19 Range/Units 10:27 Total Bilirubin 0.8 (0.3-1.0) mg/dL Direct Bilirubin 0.2 (0.0-0.2) mg/dL AST 20 (13-39) Units/L ALT 16 (7-52) Units/L Alkaline Phosphatase 63 (34-104) Units/L Albumin 3.7 (3.5-5.7) g/dL Urine 05/27/19 Range/Units 13:21 Urine Color Yellow (Yellow) Urine Clarity Cloudy A (Clear) Urine pH 6.0 (5.0-8.0) pH Units Ur Specific [place] 1.022 (1.010-1.025) Urine Protein 100 H (Neg-Trace) mg/dL Urine Glucose (UA) Normal (Normal) mg/dL - ABG Interpretation ABG results: PT/INR, D-dimer PT 12.1 Seconds (9.4-12.1) 05/27/19 10:27 - Impressions Impressions Chest X-Ray 05/27/19 10:11 IMPRESSION: 1. No active pulmonary disease. D/ / Branden Moreno MD / Branden Moreno MD Interpreting Provider: Branden Moreno MD Abdomen/Pelvis CT 05/27/19 10:28 IMPRESSION: Enlarged prostate gland with Concepcion catheter balloon likely within the prostatic urethra. Decompressed bladder with irregular bladder wall thickening likely related to chronic bladder outlet obstruction. However, suspected hemorrhage in the bladder is also noted. Cystoscopy should be considered to exclude bladder mass. No urinary tract stones or hydronephrosis. Hyperdense lesions in both kidneys most likely representing hemorrhagic cysts. Recommend renal mass protocol CT or MRI for definitive evaluation. No evidence of bowel obstruction. Large amount of stool throughout the colon suggesting constipation. Mild improvement of bowel distention compared to prior exam. Wall thickening of the rectum. This is nonspecific. Recommend colonoscopy if not already performed. D/ 05/27/2019 12:27:48 Pravin Vargas MD / [facility] Interpreting Provider: Pravin Vargas MD Head CT 05/27/19 11:17 IMPRESSION: No acute intracranial abnormality. D/ / Colton Harden MD / Colton Harden MD Interpreting Provider: Colton Harden MD Consult Discharge Plan - Plan Referrals: Thiago Cid DO [Primary Care Provider] - (7) UTI (urinary tract infection) Qualifiers: Urinary tract infection type: site unspecified Hematuria presence: without hematuria Qualified Code(s): N39.0 - Urinary tract infection, site not specified (8) Depression Qualifiers: Depression Type: unspecified Qualified Code(s): F32.9 - Major depressive disorder, single episode, unspecified (9) HLD (hyperlipidemia) Qualifiers: Hyperlipidemia type: unspecified Qualified Code(s): E78.5 - Hyperlipidemia, unspecified
[2019-05-28] MEDS: *HR* Heparin 5,000 UNIT/ML VIAL SQ SCH (18:16)
[2019-05-29] MEDS: *HR* Heparin 5,000 UNIT/ML VIAL SQ SCH ×2 (05:05→16:50)
[2019-05-29 05:42] LABS: Basophils % 0.1 %; Eosinophils % 0.6 %; Hematocrit 36.7 % (37.5-50.1); Hemoglobin 11.9 g/dL (12.9-16.9); Immature Granulocytes % 0.3 % (0-4); Lymphocytes # 1.3 K/mcL (0.6-4.6); Lymphocytes % 18.3 %; Mean Corpuscular HGB Conc 32.4 g/dL (31.6-35.5); Mean Corpuscular Hemoglobin 32.9 pg (28.0-33.3); Mean Corpuscular Volume 101.4 fL (83.0-100.0); Monocytes % 13.9 %; Neutrophils # 4.8 K/mcL (1.6-8.9); Red Blood Count 3.62 M/mcL (4.19-5.50); Red Cell Distribution Width 12.9 % (11.5-14.5); Segmented Neutrophils % 66.8 %; White Blood Count 7.2 K/mcL (4.3-11.1)
[2019-05-29 05:44] LABS: Platelet Count 88 K/mcL (140-400)
[2019-05-29 05:59] LABS: BUN/Creatinine Ratio 27 (6-26); Blood Urea Nitrogen 33 mg/dL (8-23); Calcium 8.8 mg/dL (8.6-10.3); Carbon Dioxide 24 mEq/L (23-29); Chloride 108 mEq/L (98-107); Glucose 108 mg/dL (70-105); Osmolality,Calculated 298 (280-300); Phosphorous 2.2 mg/dL (2.7-4.5); Potassium 3.5 mEq/L (3.5-5.1); Sodium 140 mEq/L (136-145); eGFR For African Americans > 60 (> 60); eGFR For Non-African Americans 55 (> 60)
[2019-05-29] MEDS: cefTRIAXone 1,000 MG in Water for inj. (sterile) 10 ML IVP SCH (07:28)
--- NOTE | 2019-05-29 08:46 | Urology Progress Note ---
<Nehal Pride N - Last Filed: 05/29/19 08:44> Date of Encounter: 05/29/19 Time of Encounter: 07:50 - Assessment and Plan (1) Bladder mass Current Visit: Yes Status: Suspected (2) Acute urinary retention Current Visit: Yes Status: Acute Assessment and plan: Patient is an 89-year-old male who presents with acute urinary retention and a bladder mass. I was unable to interact with patient directly due to his mental status. Patient will likely be discharged with indwelling Crespo catheter, and we will see him within 2-3 weeks for a cystoscopy and trial of void. Progress Note Narrative: Patient seen and examined sitting upright in chair in no apparent distress. Patient with SHEET ROCK APPLICATOR sitter at bedside. Patient is nonverbal, and he does not respond 2 patient identifiers. Crespo catheter is indwelling and draining transparent, dark yellow urine into bedside bag. Objective Initial Vital Signs Temp Pulse Resp BP Pulse Ox 98.4 F 96 18 157/56 100 05/27/19 10:08 05/27/19 10:08 05/27/19 10:08 05/27/19 10:05/27/19 10:08 - General physical appearance Present: no distress, no pain - Respiratory Present: normal expansion, normal respiratory effort - Abdomen Present: soft, non tender. Absent: distended - Genitourinary Urine Appearance: Present: Clear - Integumentary Present: no rash, no abnormal pigmentation - Musculoskeletal Present: normal posture - Psychiatric Absent: oriented to time, oriented to person, oriented to place, speech is normal, memory intact - Labs 05/29/19 04:04 05/29/19 04:04 Diabetes panel 05/29/19 Range/Units 04:04 Sodium 140 (136-145) mEq/L Potassium 3.5 (3.5-5.1) mEq/L Chloride 108 H (98-107) mEq/L Carbon Dioxide 24 (23-29) mEq/L BUN 33 H (8-23) mg/dL Creatinine 1.23 (0.70-1.30) mg/dL Glucose 108 H (70-105) mg/dL Calcium 8.8 (8.6-10.3) mg/dL Calcium panel 05/29/19 Range/Units 04:04 Calcium 8.8 (8.6-10.3) mg/dL Phosphorus 2.2 L (2.7-4.5) mg/dL Pituitary panel 05/29/19 Range/Units 04:04 Sodium 140 (136-145) mEq/L Potassium 3.5 (3.5-5.1) mEq/L Chloride 108 H (98-107) mEq/L Carbon Dioxide 24 (23-29) mEq/L BUN 33 H (8-23) mg/dL Creatinine 1.23 (0.70-1.30) mg/dL Glucose 108 H (70-105) mg/dL Calcium 8.8 (8.6-10.3) mg/dL Adrenal panel 05/29/19 Range/Units 04:04 Sodium 140 (136-145) mEq/L Potassium 3.5 (3.5-5.1) mEq/L Chloride 108 H (98-107) mEq/L Carbon Dioxide 24 (23-29) mEq/L BUN 33 H (8-23) mg/dL Creatinine 1.23 (0.70-1.30) mg/dL Glucose 108 H (70-105) mg/dL Calcium 8.8 (8.6-10.3) mg/dL Consult Discharge Plan - Plan Referrals: Thiago Cid DO [Primary Care Provider] - <Yevgeniy Allen - Last Filed: 05/29/19 16:22> Date of Encounter: 05/29/19 - Assessment and Plan (1) Bladder mass Current Visit: Yes Status: Suspected (2) Elevated serum creatinine Current Visit: Yes Status: Acute (3) Acute confusion Current Visit: Yes Status: Acute (4) Acute urinary retention Current Visit: Yes Status: Acute Progress Note Narrative: Patient was seen and examined independent. Agree with the plan as written by Nehal Pride. At this point patient's mental status appears to the stable if not slightly worsened. Good urine output and clear urine. Lab stable. Patient can continue with catheter drainage at this time. He will follow up with urology in 2 weeks for catheter change and possible cystoscopy. Objective Initial Vital Signs Temp Pulse Resp BP Pulse Ox 98.4 F 96 18 157/56 100 05/27/19 10:08 05/27/19 10:08 05/27/19 10:08 05/27/19 10:08 05/27/19 10:08 - Labs 05/29/19 04:04 05/29/19 04:04 Diabetes panel 05/29/19 Range/Units 04:04 Sodium 140 (136-145) mEq/L Potassium 3.5 (3.5-5.1) mEq/L Chloride 108 H (98-107) mEq/L Carbon Dioxide 24 (23-29) mEq/L BUN 33 H (8-23) mg/dL Creatinine 1.23 (0.70-1.30) mg/dL Glucose 108 H (70-105) mg/dL Calcium 8.8 (8.6-10.3) mg/dL Calcium panel 05/29/19 Range/Units 04:04 Calcium 8.8 (8.6-10.3) mg/dL Phosphorus 2.2 L (2.7-4.5) mg/dL Pituitary panel 05/29/19 Range/Units 04:04 Sodium 140 (136-145) mEq/L Potassium 3.5 (3.5-5.1) mEq/L Chloride 108 H (98-107) mEq/L Carbon Dioxide 24 (23-29) mEq/L BUN 33 H (8-23) mg/dL Creatinine 1.23 (0.70-1.30) mg/dL Glucose 108 H (70-105) mg/dL Calcium 8.8 (8.6-10.3) mg/dL Adrenal panel 05/29/19 Range/Units 04:04 Sodium 140 (136-145) mEq/L Potassium 3.5 (3.5-5.1) mEq/L Chloride 108 H (98-107) mEq/L Carbon Dioxide 24 (23-29) mEq/L BUN 33 H (8-23) mg/dL Creatinine 1.23 (0.70-1.30) mg/dL Glucose 108 H (70-105) mg/dL Calcium 8.8 (8.6-10.3) mg/dL
[2019-05-29] MEDS ORDERED: Haloperidol Lactate 5 MG/ML VIAL IVP PRN (10:35)
--- NOTE | 2019-05-29 12:32 | Internal Med Progress Note ---
Hospitalist Progress Note - Encounter Date of Encounter: 05/29/19 Time of Encounter: 12:30 - Subjective Interval History: I have seen and evaluated the patient and bedside. Patient with some episodes of visual hallucinations and agitation per family member and nurse. patient denies chest pain, or abdominal pain. In no visual distress during my evaluation. - Exam Vitals: Temp Pulse Resp BP Pulse Ox 98.9 F 116 18 153/81 95 05/29/19 08:31 05/29/19 08:31 05/29/19 08:31 05/29/19 08:31 05/29/19 08:31 Exam: Vitals: Reviewed General: Alert and oriented x1. In no distress. Cardiovascular: RRR, normal S1 & S2, no rubs, murmurs or gallops. Lungs: CTA b/l, no wheezes or crackles. Abdomen: Soft, non-tender, no rigidity. Extremities: No edema Neurological: Resting tremors Rest of the physical exam is non contributory - Assessment and Plan (1) Delirium Current Visit: Yes Status: Acute Assessment and Plan: Patient with some visual hallucinations. 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 B12 and folate ordered, macrocytic anemia (2) Acute urinary retention Current Visit: Yes Status: Acute Assessment and Plan: patient with concepcion catheter. concepcion management per urology recommendations. (3) Bladder mass Current Visit: Yes Status: Suspected Assessment and Plan: plan of care as above (4) Thrombocytopenia Current Visit: Yes Status: Chronic Assessment and Plan: platelets count stable. will continue to monitor (5) CKD (chronic kidney disease), stage III Current Visit: Yes Status: Acute (6) Parkinson disease Current Visit: Yes Status: Chronic (7) UTI (urinary tract infection) Current Visit: Yes Status: Suspected Assessment and Plan: urine culture: no growth. will continue ceftriaxone 1gm/IV daily to complete 5 days of antibiotics coverage. blood culture: no growth to date. (8) Depression Current Visit: Yes Status: Chronic Assessment and Plan: continue Doxepin 75mg/PO HS. (9) HLD (hyperlipidemia) Current Visit: Yes Status: Chronic Assessment and Plan: On lovastatin 40mg/PO HS. (10) Hypophosphatemia Current Visit: Yes Status: Acute Assessment and Plan: electrolyte replaced. will re-assess phosphorous level tomorrow morning. Encourage oral intake. (11) Severe protein-calorie malnutrition Current Visit: Yes Status: Chronic DVT Prophylaxis: On heparin subq - Summary of Assessment and Plan Summary of Assessment and Plan: Patient to remain in the hospital due to Delirum with visual hallucinations. - Time Spent with Patient Total time spent is greater than 50% in coordination of care (as documented) at patient's floor/unit and/or counseling patient: Greater than 35 minutes (40) Plan of Care Discussed with: nurse (and patient's son at bedside.) Internal Medicine: Result - Labs CBC & Chem 7: 05/29/19 04:04 05/29/19 04:04 Labs: Short CBC 05/29/19 Range/Units 04:04 WBC 7.2 (4.3-11.1) K/mcL Hgb 11.9 L (12.9-16.9) g/dL Hct 36.7 L (37.5-50.1) % Plt Count 88 L (140-400) K/mcL Neutrophils # 4.8 (1.6-8.9) K/mcL BMP 05/29/19 04:04 Sodium 140 Potassium 3.5 Chloride 108 H Carbon Dioxide 24 BUN 33 H Creatinine 1.23 Glucose 108 H Calcium 8.8 - ABG Interpretation ABG results: PT/INR, D-dimer PT 12.1 Seconds (9.4-12.1) 05/27/19 10:27 - Impressions Impressions Abdomen/Pelvis CT 05/27/19 10:28 IMPRESSION: Enlarged prostate gland with Concepcion catheter balloon likely within the prostatic urethra. Decompressed bladder with irregular bladder wall thickening likely related to chronic bladder outlet obstruction. However, suspected hemorrhage in the bladder is also noted. Cystoscopy should be considered to exclude bladder mass. No urinary tract stones or hydronephrosis. Hyperdense lesions in both kidneys most likely representing hemorrhagic cysts. Recommend renal mass protocol CT or MRI for definitive evaluation. No evidence of bowel obstruction. Large amount of stool throughout the colon suggesting constipation. Mild improvement of bowel distention compared to prior exam. Wall thickening of the rectum. This is nonspecific. Recommend colonoscopy if not already performed. D/ / 05/27/2019 12:27:48 Pravin Vargas MD / [email or web address] Interpreting Provider: Pravin Vargas MD Consult Discharge Plan - Plan Referrals: Thiago Cid DO [Primary Care Provider] - (7) UTI (urinary tract infection) Qualifiers: Urinary tract infection type: site unspecified Hematuria presence: without hematuria Qualified Code(s): N39.0 - Urinary tract infection, site not specified (8) Depression Qualifiers: Depression Type: unspecified Qualified Code(s): F32.9 - Major depressive disorder, single episode, unspecified (9) HLD (hyperlipidemia) Qualifiers: Hyperlipidemia type: unspecified Qualified Code(s): E78.5 - Hyperlipidemia, unspecified
--- NOTE | 2019-05-29 14:34 | Neurology - Consult Note ---
<Cortez Anne J - Last Filed: 05/29/19 14:51> Date of Encounter: 05/29/19 Time of Encounter: 14:17 Assessment and Plan (1) Delirium Current Visit: Yes Status: Acute Neurology consulted to evaluate for acute onset delirium Was in normal state of health approximately 2-weeks ago Has had progressing confusion since; began hallucinating overnight Was recently treated for UTI by PCP and placed on Macrobid; suspected failed outpatient treatment with mildly positive UA on admission Of note he also stopped taking Doxepin a couple of days prior to admission; consider withdrawal as cause of AMS and delirium as well I see no signs of meningismus, no fevers or leukocytosis; low suspicion for AUTOCAD TECHNICIAN infection as cause of AMS and delirium No automatisims on exam to make me think of a non-epilleptic seizure etiology of AMS The neurological exam is non-focal and I do not suspect an acute ischemic etiology either -CT head unremarkable Most likely his delirium is a combination of hospital aquired delirium and metabolic encephalopathy. Consider antidepressant withdrawal as contributing as well. Continue to treat underlying medical conditions. Delirium will take time to resolve. We are recommending stopping Haldol and holding his home dose of Doxepin Give Seroquel 25mg PO x1 now, then Seroquel 25mg PO QHS; we will also give Seroquel 12.5 mg PO x1 in the am History of Present Illness Chief complaint: delirium HPI: Mr. Ibanez is a 89 year old male with a PMH of insomnia, HLD, CKD and depression who presents with confusion which as per family report has been progressing x 2 weeks and more so over the last couple of day. There is also concerns for a new tremor in the bilateral hands. When the confused state initially developed he was seen by his PCP and treated with Macroid for a UTI. However, the confusion persisted and worsened even after ABX treatment. He was recently seen in the ED for suprapubic pain and was found to have urinary retention. A concepcion was placed and he was discharged home with resolution of urinary retention. However he returned in a more confused state. On this admission he was found to have a mildly positive UA but culture were negative. His renal function was near baseline of his expected range with CKD. The CT of the head was negative for an acute process and the CXR did not identify an acute process. Overnight he became delirious and started having hallucinations. He has never had any delirium or hallucinations previously. Neurology was consulted to evaluate for causes of delirium and to assess for underlying avi ntia. All information obtained from chart review and physician report d/t the patients delirious state and no family present for HPI Past Med Surg Social Fam HX - Past Medical History Medical history: hyperlipidemia, other Additional medical history: vagal nerve response Psychiatric history: depression - Past Surgical History Additional surgical history: hemroid surg - Social History Smoking Status: Former smoker Smokeless Tobacco Status: No Alcohol use: none Drug use: none - Family History Son Name: Son with history of urinary retention. Brother Name: Son with history of urinary retention. Hx Family Cardiac Disorders: Yes Medications and Allergies Doxepin HCl 150 mg PO DAILY 05/27/19 [History] Lovastatin 40 mg PO DAILY 05/27/19 [History] Allergy/AdvReac Type Severity Reaction Status Date / Time amitriptyline [From Elavil] Allergy Agitated Verified 01/21/16 13:07 carisoprodol [From Rela] Allergy Agitated Verified 01/21/16 13:07 hydromorphone [From Dilaudid] Allergy Agitated Verified 01/21/16 13:07 ROS unobtainable: due to mental status All Systems: The remainder of the systems were reviewed and are negative Review of Systems: PSYCH: + agitation/irritability, delirium Physical Examination - Vital Signs Vital Signs: Initial Vital Signs Temp Pulse Resp BP Pulse Ox 98.4 F 96 18 157/56 100 05/27/19 10:08 05/27/19 10:08 05/27/19 10:08 05/27/19 10:08 05/27/19 10:08 - Exam Exam: Examination: The neuro exam is complicated by patient's delirious state General Examination: *CONSTITUTIONAL: Alert to self only, no acute distress *GENERAL APPEARANCE OF PATIENT appears stated age and well groomed *EYES: pupils equal, round, reactive to light and accommodation, conjunctiva clear without masses or ulcerations, fundi normal. *CARDIOVASCULAR: no peripheral edema, distal temperature normal, dorsalis pedis pulses normal. Refer to vital signs * MUSCULOSKELETAL: *GAIT AND STATION: deferred *ASSESSMENT OF MUSCLE STRENGTH IN THE UPPER AND LOWER EXTREMITIES jame ateral deltoid, bicep, tricep, benefits coordinator strength, hip flexors ,anterior tibialis, dorsoflexion of the foot 4/5 *MUSCLE TONE IN THE UPPER AND LOWER EXTREMITIES volitional tremor in the left hand; decreased with distraction and becomes rhythmic when instructing patient to tap his feet PSYCH: agitated, delirious and hallucinating; reporting seeing buses and children on the wall in his room Neurological: Frontal release signs seen on exam *ORIENTATION to person only *LANGUAGE AND FUNCTION no significant aphasia or dysarthia was noted. *ATTENTION AND CONCENTRATION are abnormal and he is distracted requiring frequent redirection *LANGUAGE FUNCTION no significant aphasia or dysarthia was noted. *FUND OF KNOWLEDGE difficulty recalling current events; unable to recall breakfast or lunch *MENTAL attention span and concentration abnormal and he distracts easily. *CN II optic fundi were normal, no papilledema noted. *CN III,IV, PERRLA extraocular eye movements were full, no nystagmus and no ptosis noted. *CN V shows normal sensation and jaw opens symmetrically. *CN VII shows normal facial movement symmetrically, upper and lower bilaterally. *CN VIII shows no significant hearing loss on exam *CN IX-X palate elevated symmetrically *CN XI normal strength in the sternocleidomastoid muscles, symmetrical shoulder shrugging. *CN XII tongue protruded in the midline, with normal strength and movement. *SENSORY EXAMINATION light touch intact *REFLEXES: deep tendon reflexes were normal and symmetrical , grade 1/4 diffusely, no pathological reflexes were noted. *CEREBELLAR TESTING normal finger to nose *PAIN LEVEL 0/10 Results - Laboratory Findings CBC and BMP: 05/29/19 04:04 05/29/19 04:04 Abnormal lab findings: Abnormal lab results RBC 3.62 M/mcL (4.19-5.50) L 05/29/19 04:04 Hgb 11.9 g/dL (12.9-16.9) L 05/29/19 04:04 Hct 36.7 % (37.5-50.1) L 05/29/19 04:04 MCV 101.4 fL (83.0-100.0) H 05/29/19 04:04 Plt Count 88 K/mcL (140-400) L 05/29/19 04:04 Immature Plt Fraction 7.0 % (1.1-6.1) H 05/28/19 05:38 ESR 13 mm/hr (0-10) H 05/27/19 16:06 APTT 46.0 Seconds (26.0-36.0) H 05/27/19 10:27 Chloride 108 mEq/L (98-107) H 05/29/19 04:04 BUN 33 mg/dL (8-23) H 05/29/19 04:04 1.32 mg/dL (0.70-1.30) H 05/28/19 05:38 Est GFR ( Amer) 50 (> 60) L 05/27/19 10:27 Est GFR (Non-Af Amer) 55 (> 60) L 05/29/19 04:04 27 (6-26) H 05/29/19 04:04 Glucose 108 mg/dL (70-105) H 05/29/19 04:04 POC Glucose 117 mg/dL (70-99) H 05/29/19 08:33 308 (280-300) H 05/28/19 05:38 Phosphorus 2.2 mg/dL (2.7-4.5) L 05/29/19 04:04 30 mg/L (Less than 10) H 05/27/19 16:06 Cloudy (Clear) A 05/27/19 13:21 100 mg/dL (Neg-Trace) H 05/27/19 13:21 15 mg/dL (Negative) H 05/27/19 13:21 Large (Negative) H 05/27/19 13:21 2.0 mg/dL (Normal) H 05/27/19 13:21 Ur Leukocyte Esterase Moderate (Negative) H 05/27/19 13:21 TNTC per hpf (0-3) H 05/27/19 13:21 15-30 per hpf (0-3) H 05/27/19 13:21 Ur Squamous Epith Cells Many per lpf (None-Few) H 05/27/19 13:21 Ur Culture Indicated? YES (NO) A 05/27/19 13:21 - Diagnostic Findings Additional findings: CT/CT head/brain wo con IMPRESSION: No acute intracranial abnormality. Consult Discharge Plan - Plan Referrals: Thiago Cid DO [Primary Care Provider] - <Howard Miller I - Last Filed: 05/29/19 16:44> Date of Encounter: 05/29/19 Assessment and Plan (1) Delirium Current Visit: Yes Status: Acute I have personally performed a face to face diagnostic evaluation, including HPI, EXAM, which is included in the Assesment and plan, which was discussed with Cortez Anne CNP, I agree with the above outlined documentation. Howard Miller MD. NeurologyI History of Present Illness HPI: Mr. Ibanez is a 89 year old male All Systems: The remainder of the systems were reviewed and are negative Physical Examination - Vital Signs Vital Signs: Initial Vital Signs Temp Pulse Resp BP Pulse Ox 98.4 F 96 18 157/56 100 05/27/19 10:08 05/27/19 10:08 05/27/19 10:08 05/27/19 10:08 05/27/19 10:08 Results - Laboratory Findings CBC and BMP: 05/29/19 04:04 05/29/19 04:04 Abnormal lab findings: Abnormal lab results RBC 3.62 M/mcL (4.19-5.50) L 05/29/19 04:04 Hgb 11.9 g/dL (12.9-16.9) L 05/29/19 04:04 Hct 36.7 % (37.5-50.1) L 05/29/19 04:04 MCV 101.4 fL (83.0-100.0) H 05/29/19 04:04 Plt Count 88 K/mcL (140-400) L 05/29/19 04:04 Immature Plt Fraction 7.0 % (1.1-6.1) H 05/28/19 05:38 ESR 13 mm/hr (0-10) H 05/27/19 16:06 APTT 46.0 Seconds (26.0-36.0) H 05/27/19 10:27 Chloride 108 mEq/L (98-107) H 05/29/19 04:04 BUN 33 mg/dL (8-23) H 05/29/19 04:04 1.32 mg/dL (0.70-1.30) H 05/28/19 05:38 Est GFR ( Amer) 50 (> 60) L 05/27/19 10:27 Est GFR (Non-Af Amer) 55 (> 60) L 05/29/19 04:04 27 (6-26) H 05/29/19 04:04 Glucose 108 mg/dL (70-105) H 05/29/19 04:04 POC Glucose 117 mg/dL (70-99) H 05/29/19 08:33 308 (280-300) H 05/28/19 05:38 Phosphorus 2.2 mg/dL (2.7-4.5) L 05/29/19 04:04 30 mg/L (Less than 10) H 05/27/19 16:06 Cloudy (Clear) A 05/27/19 13:21 100 mg/dL (Neg-Trace) H 05/27/19 13:21 15 mg/dL (Negative) H 05/27/19 13:21 Large (Negative) H 05/27/19 13:21 2.0 mg/dL (Normal) H 05/27/19 13:21 Ur Leukocyte Esterase Moderate (Negative) H 05/27/19 13:21 TNTC per hpf (0-3) H 05/27/19 13:21 15-30 per hpf (0-3) H 05/27/19 13:21 Ur Squamous Epith Cells Many per lpf (None-Few) H 05/27/19 13:21 Ur Culture Indicated? YES (NO) A 05/27/19 13:21
[2019-05-30] MEDS: *HR* Heparin 5,000 UNIT/ML VIAL SQ SCH ×2 (03:18→17:32)
[2019-05-30] MEDS: cefTRIAXone 1,000 MG in Water for inj. (sterile) 10 ML IVP SCH (08:17)
--- NOTE | 2019-05-30 10:05 | Neurology Progress Note ---
<Cortez Anne - Last Filed: 05/30/19 10:03> Date of Encounter: 05/30/19 Time of Encounter: 10:03 Assessment and Plan (1) Delirium Current Visit: Yes Status: Acute Pleasantly confused today; no longer delirious Neuro exam remains non focal Low suspicion for CANDLES POURER infection or acute central neurological etiology of delirium -no meningismus, CT head unremarkable, no fevers, or leukocytes Consider multifx with med withdrawal and UTI Continue correcting underlying medical conditions; encephalopathy will take time to resolve Recommend continuing Seroquel 25mg HS Neurology will follow peripherally; please call should any urgent need arise Subjective Principal diagnosis: delirium Interval history: seen in follow up for delirium. Resting quietly in a chair at the bedside today. No longer hallucinating. Had delirium and agitation overnight requiring a sitter but did not get his PM dose of Seroquel. Received Seroquel this morning and has significantly improved. He is calm and cooperative with exam this morning and there are no focal deficits on today's exam. Family is present and I discussed POC this morning. Objective - Constitutional Vitals: Temp Pulse Resp BP Pulse Ox 97.7 F 105 16 132/76 96 05/29/19 20:04 05/29/19 20:04 05/29/19 20:04 05/29/19 20:04 05/29/19 20:04 Exam: Examination: The neuro exam is complicated by patient's delirious state General Examination: *CONSTITUTIONAL: Alert to self only, no acute distress *GENERAL APPEARANCE OF PATIENT appears stated age and well groomed *EYES: pupils equal, round, reactive to light and accommodation, conjunctiva clear without masses or ulcerations, fundi normal. *CARDIOVASCULAR: no peripheral edema, distal temperature normal, dorsalis pedis pulses normal. Refer to vital signs * MUSCULOSKELETAL: *GAIT AND STATION: deferred *ASSESSMENT OF MUSCLE STRENGTH IN THE UPPER AND LOWER EXTREMITIES bilateral deltoid, bicep, tricep, geodesy teacher strength, hip flexors ,anterior tibialis, dorsoflexion of the foot 4/5 *MUSCLE TONE IN THE UPPER AND LOWER EXTREMITIES tremor has resolved PSYCH: agitation and hallucinations have ceased today Neurological: Frontal release signs seen on exam *ORIENTATION to person only *LANGUAGE AND FUNCTION no significant aphasia or dysarthia was noted. *ATTENTION AND CONCENTRATION are abnormal and he is somewhat distracted requiring redirection *LANGUAGE FUNCTION no significant aphasia or dysarthia was noted. *FUND OF KNOWLEDGE difficulty recalling current events; unable to recall breakfast or lunch *MENTAL attention span and concentration abnormal and he continue to distract but has improved from yesterdays exam and is able to maintain concentration for a longer period of time requiring less frequent redirection. *CN II optic fundi were normal, no papilledema noted. *CN III,IV, PERRLA extraocular eye movements were full, no nystagmus and no ptosis noted. *CN V shows normal sensation and jaw opens symmetrically. *CN VII shows normal facial movement symmetrically, upper and lower bilaterally. *CN VIII shows no significant hearing loss on exam *CN IX-X palate elevated symmetrically *CN XI normal strength in the sternocleidomastoid muscles, symmetrical shoulder shrugging. *CN XII tongue protruded in the midline, with normal strength and movement. *SENSORY EXAMINATION light touch intact *REFLEXES: deep tendon reflexes were normal and symmetrical , grade 1/4 diffusely, no pathological reflexes were noted. *CEREBELLAR TESTING normal finger to nose *PAIN LEVEL 0/10 Results - Laboratory Findings CBC and BMP: 05/29/19 04:04 05/29/19 04:04 Abnormal lab findings: Abnormal lab results RBC 3.62 M/mcL (4.19-5.50) L 05/29/19 04:04 Hgb 11.9 g/dL (12.9-16.9) L 05/29/19 04:04 Hct 36.7 % (37.5-50.1) L 05/29/19 04:04 MCV 101.4 fL (83.0-100.0) H 05/29/19 04:04 Plt Count 88 K/mcL (140-400) L 05/29/19 04:04 Immature Plt Fraction 7.0 % (1.1-6.1) H 05/28/19 05:38 ESR 13 mm/hr (0-10) H 05/27/19 16:06 APTT 46.0 Seconds (26.0-36.0) H 05/27/19 10:27 Chloride 108 mEq/L (98-107) H 05/29/19 04:04 BUN 33 mg/dL (8-23) H 05/29/19 04:04 Creatinine 1.32 mg/dL (0.70-1.30) H 05/28/19 05:38 Est GFR ( Amer) 50 (> 60) L 05/27/19 10:27 Est GFR (Non-Af Amer) 55 (> 60) L 05/29/19 04:04 BUN/Creatinine Ratio 27 (6-26) H 05/29/19 04:04 Glucose 108 mg/dL (70-105) H 05/29/19 04:04 POC Glucose 117 mg/dL (70-99) H 05/29/19 08:33 Calculated Osmolality 308 (280-300) H 05/28/19 05:38 Phosphorus 2.2 mg/dL (2.7-4.5) L 05/29/19 04:04 C-Reactive Protein 30 mg/L (Less than 10) H 05/27/19 16:06 Urine Clarity Cloudy (Clear) A 05/27/19 13:21 Urine Protein 100 mg/dL (Neg-Trace) H 05/27/19 13:21 Urine Ketones 15 mg/dL (Negative) H 05/27/19 13:21 Urine Blood Large (Negative) H 05/27/19 13:21 Urine Urobilinogen 2.0 mg/dL (Normal) H 05/27/19 13:21 Ur Leukocyte Esterase Moderate (Negative) H 05/27/19 13:21 Urine Microscopic RBC TNTC per hpf (0-3) H 05/27/19 13:21 Urine Microscopic WBC 15-30 per hpf (0-3) H 05/27/19 13:21 Ur Squamous Epith Cells Many per lpf (None-Few) H 05/27/19 13:21 Ur Culture Indicated? YES (NO) A 05/27/19 13:21 Consult Discharge Plan - Plan Referrals: Thiago Cid DO [Primary Care Provider] - <Howard Miller I - Last Filed: 05/30/19 11:55> Date of Encounter: 05/30/19 Assessment and Plan (1) Delirium Current Visit: Yes Status: Resolved I have personally performed a face to face diagnostic evaluation, including HPI, EXAM, which is included in the Assesment and plan, which was discussed with Cortez Anne CNP, I agree with the above outlined documentation. Much improved suggest to continue on Seroquel later on could be discharged once he started getting back to his baseline at home Okay to discharge or transfer from neurology standpoint Howard Miller MD. NeurologyI Objective - Constitutional Vitals: Temp Pulse Resp BP Pulse Ox 97.7 F 105 16 132/76 96 05/29/19 20:04 05/29/19 20:04 05/29/19 20:04 05/29/19 20:04 05/29/19 20:04 Results - Laboratory Findings CBC and BMP: 05/29/19 04:04 05/29/19 04:04 Abnormal lab findings: Abnormal lab results RBC 3.62 M/mcL (4.19-5.50) L 05/29/19 04:04 Hgb 11.9 g/dL (12.9-16.9) L 05/29/19 04:04 Hct 36.7 % (37.5-50.1) L 05/29/19 04:04 MCV 101.4 fL (83.0-100.0) H 05/29/19 04:04 Plt Count 88 K/mcL (140-400) L 05/29/19 04:04 Immature Plt Fraction 7.0 % (1.1-6.1) H 05/28/19 05:38 ESR 13 mm/hr (0-10) H 05/27/19 16:06 APTT 46.0 Seconds (26.0-36.0) H 05/27/19 10:27 Chloride 108 mEq/L (98-107) H 05/29/19 04:04 BUN 33 mg/dL (8-23) H 05/29/19 04:04 Creatinine 1.32 mg/dL (0.70-1.30) H 05/28/19 05:38 Est GFR ( Amer) 50 (> 60) L 05/27/19 10:27 Est GFR (Non-Af Amer) 55 (> 60) L 05/29/19 04:04 BUN/Creatinine Ratio 27 (6-26) H 05/29/19 04:04 Glucose 108 mg/dL (70-105) H 05/29/19 04:04 POC Glucose 109 mg/dL (70-99) H 05/29/19 11:25 Calculated Osmolality 308 (280-300) H 05/28/19 05:38 Phosphorus 2.2 mg/dL (2.7-4.5) L 05/29/19 04:04 C-Reactive Protein 30 mg/L (Less than 10) H 05/27/19 16:06 Urine Clarity Cloudy (Clear) A 05/27/19 13:21 Urine Protein 100 mg/dL (Neg-Trace) H 05/27/19 13:21 Urine Ketones 15 mg/dL (Negative) H 05/27/19 13:21 Urine Blood Large (Negative) H 05/27/19 13:21 Urine Urobilinogen 2.0 mg/dL (Normal) H 05/27/19 13:21 Ur Leukocyte Esterase Moderate (Negative) H 05/27/19 13:21 Urine Microscopic RBC TNTC per hpf (0-3) H 05/27/19 13:21 Urine Microscopic WBC 15-30 per hpf (0-3) H 05/27/19 13:21 Ur Squamous Epith Cells Many per lpf (None-Few) H 05/27/19 13:21 Ur Culture Indicated? YES (NO) A 05/27/19 13:21
--- NOTE | 2019-05-30 10:17 | Internal Med Progress Note ---
Hospitalist Progress Note - Encounter Date of Encounter: 05/30/19 Time of Encounter: 10:14 - Subjective Interval History: I have seen and evaluated the patient at bedside. patient more cooperative today, no hallucination reported today. significant improvement in mental status. patient denies chest pain, abdominal pain, nausea or vomiting. - Exam Vitals: Temp Pulse Resp BP Pulse Ox 97.7 F 105 16 132/76 96 05/29/19 20:04 05/29/19 20:04 05/29/19 20:04 05/29/19 20:04 05/29/19 20:04 Exam: Vitals: Reviewed General: Alert and oriented x1. In no distress. Cardiovascular: RRR, normal S1 & S2, no rubs, murmurs or gallops. Lungs: CTA b/l, no wheezes or crackles. Abdomen: Soft, non-tender, no rigidity. NABS in all 4 quadrants Extremities: No edema Neurological: No focal neurological abnormalities Rest of the physical exam is non contributory - Assessment and Plan (1) Delirium Current Visit: Yes Status: Resolved Assessment and Plan: no hallucination reported today. per patient at bedside patient is close to his baseline. patient on Quetiapine 25mg/PO HS Neurology recommendations appreciated. doxepin discontinued. (2) Acute urinary retention Current Visit: Yes Status: Acute Assessment and Plan: patient with concepcion catheter. concepcion management per urology recommendations. Per urology recommendations patient to be discharged with the concepcion cath and have a voiding trial in 1-2 weeks after hospital discharge. (3) Bladder mass Current Visit: Yes Status: Suspected Assessment and Plan: Outpatient follow up with urology. (4) Thrombocytopenia Current Visit: Yes Status: Chronic Assessment and Plan: platelets count stable. Plan continue to monitor (5) Parkinson disease Current Visit: Yes Status: Chronic (6) UTI (urinary tract infection) Current Visit: Yes Status: Suspected Assessment and Plan: discontinue ceftriaxone. started on cefdinir 300mg/PO daily. urine culture: No growth. (7) Depression Current Visit: Yes Status: Chronic Assessment and Plan: started on Quetiapine 25mg/PO HS Doxepin discontinue per neurology recommendations. (8) HLD (hyperlipidemia) Current Visit: Yes Status: Chronic Assessment and Plan: Continue lovastatin 40mg/PO HS. (9) Severe protein-calorie malnutrition Current Visit: Yes Status: Chronic DVT Prophylaxis: On heparin subQ. - Summary of Assessment and Plan Summary of Assessment and Plan: Will keep patient in the hospital to monitor mental status for at least 24 more hours. social service director consulted as patient will need placement. Patient's cannot take care of him at home. - Time Spent with Patient Total time spent is greater than 50% in coordination of care (as documented) at patient's floor/unit and/or counseling patient: Greater than 35 minutes (40) Plan of Care Discussed with: nurse (and patient's .) Internal Medicine: Result - Labs CBC & Chem 7: 05/29/19 04:04 05/29/19 04:04 - ABG Interpretation ABG results: PT/INR, D-dimer PT 12.1 Seconds (9.4-12.1) 05/27/19 10:27 Consult Discharge Plan - Plan Referrals: Thiago Cid DO [Primary Care Provider] - (6) UTI (urinary tract infection) Qualifiers: Urinary tract infection type: site unspecified Hematuria presence: without hematuria Qualified Code(s): N39.0 - Urinary tract infection, site not specified (7) Depression Qualifiers: Depression Type: unspecified Qualified Code(s): F32.9 - Major depressive disorder, single episode, unspecified (8) HLD (hyperlipidemia) Qualifiers: Hyperlipidemia type: unspecified Qualified Code(s): E78.5 - Hyperlipidemia, unspecified
[2019-05-30 14:52] LABS: Basophils % 0.4 %; Eosinophils # 0.1 K/mcL (0.0-0.6); Eosinophils % 1.2 %; Hematocrit 37.8 % (37.5-50.1); Hemoglobin 12.2 g/dL (12.9-16.9); Immature Granulocytes % 0.4 % (0-4); Lymphocytes # 1.3 K/mcL (0.6-4.6); Lymphocytes % 15.6 %; Mean Corpuscular HGB Conc 32.3 g/dL (31.6-35.5); Mean Corpuscular Hemoglobin 32.3 pg (28.0-33.3); Mean Platelet Volume 11.8 fL (9.4-12.4); Monocytes # 1.1 K/mcL (0.0-1.3); Monocytes % 13.2 %; Neutrophils # 5.8 K/mcL (1.6-8.9); Platelet Count 110 K/mcL (140-400); Red Blood Count 3.78 M/mcL (4.19-5.50); Red Cell Distribution Width 12.6 % (11.5-14.5); Segmented Neutrophils % 69.2 %; White Blood Count 8.4 K/mcL (4.3-11.1)
[2019-05-30 15:30] LABS: BUN/Creatinine Ratio 27 (6-26); Blood Urea Nitrogen 36 mg/dL (8-23); Carbon Dioxide 24 mEq/L (23-29); Chloride 105 mEq/L (98-107); Glucose 113 mg/dL (70-105); Magnesium 1.9 mg/dL (1.6-2.6); Osmolality,Calculated 295 (280-300); Phosphorous 3.2 mg/dL (2.7-4.5); Potassium 3.3 mEq/L (3.5-5.1); Sodium 138 mEq/L (136-145); eGFR For African Americans > 60 (> 60); eGFR For Non-African Americans 50 (> 60)
[2019-05-30 15:54] LABS: Folate 12.2 ng/mL (3.0-16.0)
[2019-05-30] MEDS ORDERED: Ringers Solution, Lactated 1,000 ML IVC SCH (18:00)
[2019-05-31] MEDS ORDERED: Acetaminophen 325 MG TABLET PO PRN (04:40)
[2019-05-31] MEDS: *HR* Heparin 5,000 UNIT/ML VIAL SQ SCH ×2 (04:47→17:43)
[2019-05-31] MEDS ORDERED: Acetaminophen IV 500 MG/50 ML INFUS..BTL IVPB ONE (04:57)
[2019-05-31 07:27] LABS: BUN/Creatinine Ratio 30 (6-26); Blood Urea Nitrogen 36 mg/dL (8-23); Carbon Dioxide 20 mEq/L (23-29); Chloride 106 mEq/L (98-107); Glucose 105 mg/dL (70-105); Magnesium 1.8 mg/dL (1.6-2.6); Osmolality,Calculated 295 (280-300); Phosphorous 3.3 mg/dL (2.7-4.5); Potassium 3.4 mEq/L (3.5-5.1); Sodium 138 mEq/L (136-145); eGFR For African Americans > 60 (> 60); eGFR For Non-African Americans 56 (> 60)
[2019-05-31] MEDS ORDERED: Cefdinir 300 MG CAPSULE PO SCH (09:00)
--- NOTE | 2019-05-31 09:49 | Neurology Progress Note ---
Date of Encounter: 05/31/19 Time of Encounter: 08:35 Assessment and Plan (1) Delirium Current Visit: Yes Status: Resolved Acute delirium much improved suggest continue cervical may decrease the morning dose and leave him only on 25 mg of Seroquel at bedtime Okay to discharge from neurology standpoint follow-up in neurology clinic 3-4 weeks for the assessment of baseline dementia as he may need some change in medication Howard Miller MD. NeurologyI Subjective Principal diagnosis: delirium Interval history: Stable no new symptoms or complaints continue on current dosage of Seroquel Objective - Constitutional Vitals: Temp Pulse Resp BP Pulse Ox 99.8 F H 103 20 124/78 96 05/31/19 07:09 05/31/19 07:09 05/31/19 07:09 05/31/19 07:09 05/31/19 07:09 - VTE Documentation of Mechanical Device: Intermittent pneumatic compression device Results - Laboratory Findings CBC and BMP: 05/30/19 14:13 05/31/19 06:29 Abnormal lab findings: Abnormal lab results RBC 3.78 M/mcL (4.19-5.50) L 05/30/19 14:13 Hgb 12.2 g/dL (12.9-16.9) L 05/30/19 14:13 Hct 36.7 % (37.5-50.1) L 05/29/19 04:04 MCV 101.4 fL (83.0-100.0) H 05/29/19 04:04 Plt Count 110 K/mcL (140-400) L 05/30/19 14:13 Immature Plt Fraction 7.0 % (1.1-6.1) H 05/28/19 05:38 ESR 13 mm/hr (0-10) H 05/27/19 16:06 APTT 46.0 Seconds (26.0-36.0) H 05/27/19 10:27 Potassium 3.4 mEq/L (3.5-5.1) L 05/31/19 06:29 Chloride 108 mEq/L (98-107) H 05/29/19 04:04 Carbon Dioxide 20 mEq/L (23-29) L 05/31/19 06:29 BUN 36 mg/dL (8-23) H 05/31/19 06:29 Creatinine 1.35 mg/dL (0.70-1.30) H 05/30/19 14:13 Est GFR ( Amer) 50 (> 60) L 05/27/19 10:27 Est GFR (Non-Af Amer) 56 (> 60) L 05/31/19 06:29 BUN/Creatinine Ratio 30 (6-26) H 05/31/19 06:29 Glucose 113 mg/dL (70-105) H 05/30/19 14:13 POC Glucose 113 mg/dL (70-99) H 05/29/19 20:11 Calculated Osmolality 308 (280-300) H 05/28/19 05:38 Phosphorus 2.2 mg/dL (2.7-4.5) L 05/29/19 04:04 C-Reactive Protein 30 mg/L (Less than 10) H 05/27/19 16:06 Urine Clarity Cloudy (Clear) A 05/27/19 13:21 Urine Protein 100 mg/dL (Neg-Trace) H 05/27/19 13:21 Urine Ketones 15 mg/dL (Negative) H 05/27/19 13:21 Urine Blood Large (Negative) H 05/27/19 13:21 Urine Urobilinogen 2.0 mg/dL (Normal) H 05/27/19 13:21 Ur Leukocyte Esterase Moderate (Negative) H 05/27/19 13:21 Urine Microscopic RBC TNTC per hpf (0-3) H 05/27/19 13:21 Urine Microscopic WBC 15-30 per hpf (0-3) H 05/27/19 13:21 Ur Squamous Epith Cells Many per lpf (None-Few) H 05/27/19 13:21 Ur Culture Indicated? YES (NO) A 05/27/19 13:21 Consult Discharge Plan - Plan Referrals: Thiago Cid DO [Primary Care Provider] -
[2019-05-31 10:03] LABS: Purkinje Cell/ANNA IgG Scrn NONE DETECTED (None Detected)
--- NOTE | 2019-05-31 11:45 | Internal Med Progress Note ---
Hospitalist Progress Note - Encounter Date of Encounter: 05/31/19 Time of Encounter: 11:43 - Subjective Interval History: I have seen and evaluated the patient at bedside. Patient is spiking fever 101.3 today, there has also been some concerns about drop in O2sat and possible aspiration as patient has been keeping food in his mouth. In no visual distress. - Exam Vitals: Temp Pulse Resp BP Pulse Ox 99.0 F 100 19 133/77 96 05/31/19 10:36 05/31/19 10:36 05/31/19 10:36 05/31/19 10:36 05/31/19 10:36 Exam: Vitals: Reviewed General: Alert and oriented x1. In no distress. Cardiovascular: RRR, normal S1 & S2, no rubs, murmurs or gallops. Lungs: Rales at the left lower lobe, no wheezes or crackles. Abdomen: Soft, non-tender, no rigidity. NABS in all 4 quadrants Extremities: No edema Neurological: No focal neurological abnormalities Rest of the physical exam is non contributory - Assessment and Plan (1) Pneumonia Current Visit: Yes Status: Acute Assessment and Plan: Chest 1V portable IMPRESSION: Left basilar pneumonia. there is some concern for possible aspiration. Plan: speech evaluated ordered started on ampicillin/sulbactam 1.5mg/IV Q6HRs sputum culture ordered. (2) Delirium Current Visit: Yes Status: Resolved Assessment and Plan: acute delirum has resolved. will continue on Quetiapine 25mg/PO HS Neurology recommendations appreciated. Patient to follow up with neurology 2-3 weeks after discharge (3) Acute urinary retention Current Visit: Yes Status: Acute Assessment and Plan: patient with concepcion catheter. concepcion management per urology recommendations. Per urology recommendations patient to be discharged with the concepcion cath and have a voiding trial in 1-2 weeks after hospital discharge. (4) Bladder mass Current Visit: Yes Status: Suspected (5) Thrombocytopenia Current Visit: Yes Status: Chronic Assessment and Plan: platelets count stable. Will continue to monitor (6) Parkinson disease Current Visit: Yes Status: Chronic (7) UTI (urinary tract infection) Current Visit: Yes Status: Suspected Assessment and Plan: on IV antibiotics. urine culture: No growth. (8) Depression Current Visit: Yes Status: Chronic Assessment and Plan: On Quetiapine 25mg/PO HS (9) HLD (hyperlipidemia) Current Visit: Yes Status: Chronic Assessment and Plan: On lovastatin 40mg/PO HS. (10) Severe protein-calorie malnutrition Current Visit: Yes Status: Chronic (11) Hypokalemia Current Visit: Yes Status: Acute Assessment and Plan: electrolyte replaced. DVT Prophylaxis: On heparin subq - Summary of Assessment and Plan Summary of Assessment and Plan: patient to remain in the hospital due to pneumonia, possible aspiration. speech evaluation ordered. - Time Spent with Patient Total time spent is greater than 50% in coordination of care (as documented) at patient's floor/unit and/or counseling patient: Greater than 35 minutes (40) Plan of Care Discussed with: nurse (and patient's .) Internal Medicine: Result - Labs CBC & Chem 7: 05/30/19 14:13 05/31/19 06:29 Labs: Short CBC 05/30/19 Range/Units 14:13 WBC 8.4 (4.3-11.1) K/mcL Hgb 12.2 L (12.9-16.9) g/dL Hct 37.8 (37.5-50.1) % Plt Count 110 L (140-400) K/mcL Neutrophils # 5.8 (1.6-8.9) K/mcL BMP 05/30/19 05/31/19 14:13 06:29 Sodium 138 138 Potassium 3.3 L 3.4 L Chloride 105 106 Carbon Dioxide 24 20 L BUN 36 H 36 H Creatinine 1.35 H 1.22 Glucose 113 H 105 Calcium 9.0 9.0 - ABG Interpretation ABG results: PT/INR, D-dimer PT 12.1 Seconds (9.4-12.1) 05/27/19 10:27 - Impressions Impressions Chest X-Ray 05/31/19 04:58 IMPRESSION: Left basilar pneumonia. D/ / Nikolas Lutz MD / Nikolas Lutz MD Interpreting Provider: Nikolas Lutz MD - VTE Documentation of Mechanical Device: Intermittent pneumatic compression device Consult Discharge Plan - Plan Referrals: Thiago Cid DO [Primary Care Provider] - (1) Pneumonia Qualifiers: Pneumonia type: due to unspecified organism Laterality: left Lung location: lower lobe of lung Qualified Code(s): J18.1 - Lobar pneumonia, unspecified organism (7) UTI (urinary tract infection) Qualifiers: Urinary tract infection type: site unspecified Hematuria presence: without hematuria Qualified Code(s): N39.0 - Urinary tract infection, site not specified (8) Depression Qualifiers: Depression Type: unspecified Qualified Code(s): F32.9 - Major depressive disorder, single episode, unspecified (9) HLD (hyperlipidemia) Qualifiers: Hyperlipidemia type: unspecified Qualified Code(s): E78.5 - Hyperlipidemia, unspecified
[2019-05-31] MEDS: Ampicillin/Sulbactam 1,500 MG in 0.9 % Sodium Chloride Mini Bag 100 ML IVPB SCH ×2 (12:22→17:43)
[2019-05-31] MEDS ORDERED: *HR* Dextrose 50 % in Water (Syg) 50 ML SYRINGE IVP PRN (13:38)
[2019-05-31] MEDS ORDERED: Dextrose Gel 15 GM/37.5 ML TUBE PO PRN ×2 (13:38)
[2019-05-31] MEDS ORDERED: D5% in Water 1,000 ML IVC PRN (13:38)
[2019-05-31] MEDS: D5% in 0.9% NACL 1,000 ML IVC SCH (15:06)
[2019-05-31] MEDS: Insulin LISPRO 300 UNITS/3 ML VIAL SQ SCH (17:33)
[2019-06-01] MEDS: Ampicillin/Sulbactam 1,500 MG in 0.9 % Sodium Chloride Mini Bag 100 ML IVPB SCH ×4 (00:41→18:37)
[2019-06-01] MEDS: Insulin LISPRO 300 UNITS/3 ML VIAL SQ SCH ×4 (00:44→18:28)
[2019-06-01] MEDS: *HR* Heparin 5,000 UNIT/ML VIAL SQ SCH ×2 (05:49→18:38)
--- NOTE | 2019-06-01 10:41 | Internal Med Progress Note ---
Hospitalist Progress Note - Encounter Date of Encounter: 06/01/19 Time of Encounter: 10:39 - Subjective Interval History: I have seen and evaluated the patient at bedside. per patient's family member at bedside. patient is back to his baseline mental status. Patient in no visual distress. denies chest pain, or shortness of breath - Exam Vitals: Temp Pulse Resp BP Pulse Ox 98.1 F 92 16 161/80 97 06/01/19 07:05 06/01/19 07:05 06/01/19 07:05 06/01/19 07:05 06/01/19 07:05 Exam: Vitals: Reviewed General: Alert and oriented x1. In no distress. Cardiovascular: RRR, normal S1 & S2, no rubs, murmurs or gallops. Lungs: CTA b/l, no wheezes or crackles. Abdomen: Soft, non-tender, no rigidity. NABS in all 4 quadrants Extremities: No edema Neurological: No focal neurological abnormalities Rest of the physical exam is non contributory - Assessment and Plan (1) Pneumonia Current Visit: Yes Status: Acute Assessment and Plan: There is some concern for possible aspiration. Afebrile and hemodynamically stable. Plan: patient scheduled for modified barrium swallow continue ampicillin/sulbactam 1.5mg/IV Q6HRs sputum culture: pending. (2) Delirium Current Visit: Yes Status: Resolved Assessment and Plan: Continue Quetiapine 25mg/PO HS Patient to follow up with neurology 2-3 weeks after discharge (3) Acute urinary retention Current Visit: Yes Status: Acute Assessment and Plan: patient with concepcion catheter. Per urology recommendations patient to be discharged with the concepcion cath and have a voiding trial in 1-2 weeks after hospital discharge. (4) Bladder mass Current Visit: Yes Status: Suspected (5) Thrombocytopenia Current Visit: Yes Status: Chronic Assessment and Plan: platelets count stable. continue to monitor (6) Parkinson disease Current Visit: Yes Status: Chronic (7) UTI (urinary tract infection) Current Visit: Yes Status: Suspected Assessment and Plan: patient has completed treatment for UTI. urine culture: No growth. (8) Depression Current Visit: Yes Status: Chronic Assessment and Plan: On Quetiapine 25mg/PO HS (9) HLD (hyperlipidemia) Current Visit: Yes Status: Chronic Assessment and Plan: Continue lovastatin 40mg/PO HS. (10) Severe protein-calorie malnutrition Current Visit: Yes Status: Chronic (11) Hypokalemia Current Visit: Yes Status: Resolved DVT Prophylaxis: On heparin subq - Summary of Assessment and Plan Summary of Assessment and Plan: Patient to remain in the hospital pending placement to SNF/ECF. - Time Spent with Patient Total time spent is greater than 50% in coordination of care (as documented) at patient's floor/unit and/or counseling patient: Greater than 35 minutes (40) Plan of Care Discussed with: nurse (and patient's family at bedside.) Internal Medicine: Result - Labs CBC & Chem 7: 05/30/19 14:13 05/31/19 06:29 - ABG Interpretation ABG results: PT/INR, D-dimer PT 12.1 Seconds (9.4-12.1) 05/27/19 10:27 - VTE Documentation of Mechanical Device: Intermittent pneumatic compression device Consult Discharge Plan - Plan Referrals: Thiago Cid DO [Primary Care Provider] - (1) Pneumonia Qualifiers: Pneumonia type: due to unspecified organism Laterality: left Lung location: lower lobe of lung Qualified Code(s): J18.1 - Lobar pneumonia, unspecified organism (7) UTI (urinary tract infection) Qualifiers: Urinary tract infection type: site unspecified Hematuria presence: without hematuria Qualified Code(s): N39.0 - Urinary tract infection, site not specified (8) Depression Qualifiers: Depression Type: unspecified Qualified Code(s): F32.9 - Major depressive disorder, single episode, unspecified (9) HLD (hyperlipidemia) Qualifiers: Hyperlipidemia type: unspecified Qualified Code(s): E78.5 - Hyperlipidemia, unspecified
[2019-06-01] MEDS: D5% in 0.9% NACL 1,000 ML IVC SCH (11:27)
[2019-06-01] MEDS ORDERED: amLODIPine 5 MG TABLET PO ONE (17:16)
[2019-06-02] MEDS: Insulin LISPRO 300 UNITS/3 ML VIAL SQ SCH ×2 (01:49→06:28)
[2019-06-02] MEDS: Ampicillin/Sulbactam 1,500 MG in 0.9 % Sodium Chloride Mini Bag 100 ML IVPB SCH ×2 (01:49→06:29)
[2019-06-02 05:40] LABS: Basophils % 0.2 %; Eosinophils # 0.1 K/mcL (0.0-0.6); Eosinophils % 0.6 %; Hemoglobin 12.1 g/dL (12.9-16.9); Immature Granulocytes % 0.2 % (0-4); Lymphocytes # 1.3 K/mcL (0.6-4.6); Lymphocytes % 14.2 %; Mean Corpuscular HGB Conc 33.6 g/dL (31.6-35.5); Mean Corpuscular Hemoglobin 33.5 pg (28.0-33.3); Mean Corpuscular Volume 99.7 fL (83.0-100.0); Mean Platelet Volume 11.5 fL (9.4-12.4); Monocytes # 1.2 K/mcL (0.0-1.3); Monocytes % 13.2 %; Neutrophils # 6.3 K/mcL (1.6-8.9); Platelet Count 114 K/mcL (140-400); Red Blood Count 3.61 M/mcL (4.19-5.50); Red Cell Distribution Width 12.6 % (11.5-14.5); Segmented Neutrophils % 71.6 %; White Blood Count 8.8 K/mcL (4.3-11.1)
[2019-06-02 06:02] LABS: BUN/Creatinine Ratio 22 (6-26); Blood Urea Nitrogen 23 mg/dL (8-23); Calcium 8.8 mg/dL (8.6-10.3); Carbon Dioxide 24 mEq/L (23-29); Chloride 108 mEq/L (98-107); Glucose 99 mg/dL (70-105); Magnesium 1.8 mg/dL (1.6-2.6); Osmolality,Calculated 300 (280-300); Phosphorous 2.7 mg/dL (2.7-4.5); Potassium 3.3 mEq/L (3.5-5.1); Sodium 143 mEq/L (136-145); eGFR For African Americans > 60 (> 60); eGFR For Non-African Americans > 60 (> 60)
[2019-06-02] MEDS: *HR* Heparin 5,000 UNIT/ML VIAL SQ SCH (06:28)
[2019-06-02] MEDS ORDERED: amLODIPine 5 MG TABLET PO SCH (09:00)
[2019-06-02] MEDS ORDERED: E-Z-HD (BARIUM SULF) SUSPENSION PO ONE (09:04)
[2019-06-02] MEDS ORDERED: E-Z-PAQUE (BARIUM SULF) SUSP 1 BOTTLE PO ONE (09:04)
--- NOTE | 2019-06-02 09:19 | Neurology Progress Note ---
<Cortez Anne J - Last Filed: 06/02/19 09:16> Date of Encounter: 06/02/19 Time of Encounter: 09:17 Assessment and Plan (1) Delirium Status: Resolved The delirium appears to have resolved Neurological exam is nonfocal Etiology of delirium likely multifactorial with medication withdrawal and UTI; baseline dementia likely furthering delirium Improved with Seroquel; recommendations are to continue Seroquel 25 mg by mouth daily at bedtime at discharge; he will need an Rx He is okay to DC from neurology's perspective at the discretion of the primary team Neurology will sign off at this time please call should any urgent needs arise Subjective Principal diagnosis: delirium Interval history: The chart was reviewed. The patient was seen and examined at the bedside. He was seen in follow-up for acute delirium. Today, the patient is alert to self calm and cooperative and does not appear to be in a delirious state. It appears that he has benefited from the addition of Seroquel. Our suggestions at this time are to continue Seroquel 25 mg by mouth at bedtime. Neurologically he is intact without any deficits. He is okay to discharge from the standpoint of neurology in follow-up in the clinic in 3-4 weeks for reassessment of baseline dementia. Objective - Constitutional Vitals: Temp Pulse Resp BP Pulse Ox 98.0 F 91 17 165/72 97 06/02/19 06:40 06/02/19 06:40 06/02/19 06:40 06/02/19 06:40 06/02/19 06:40 Exam: Exam: Examination: General Examination: *CONSTITUTIONAL: Alert to self only, no acute distress *GENERAL APPEARANCE OF PATIENT appears stated age and well groomed *EYES: pupils equal, round, reactive to light and accommodation, con junctiva clear without masses or ulcerations, fundi normal. *CARDIOVASCULAR: no peripheral edema, distal temperature normal, dorsalis pedis pulses normal. Refer to vital signs * MUSCULOSKELETAL: *GAIT AND STATION: deferred *ASSESSMENT OF MUSCLE STRENGTH IN THE UPPER AND LOWER EXTREMITIES bilateral deltoid, bicep, tricep, form setter metal road forms strength, hip flexors ,anterior tibialis, dorsoflexion of the foot 4/5 *MUSCLE TONE IN THE UPPER AND LOWER EXTREMITIES no abnormal movements, or fasciculations identified PSYCH: Calm and cooperative; he is no longer hallucinating and the delirium appears to have resolved Neurological: Frontal release signs seen on exam indicating likely dementia *ORIENTATION to person only *LANGUAGE AND FUNCTION no significant aphasia or dysarthia was noted. *ATTENTION AND CONCENTRATION are abnormal and he is distracted requiring frequent redirection *LANGUAGE FUNCTION no significant aphasia or dysarthia was noted. *FUND OF KNOWLEDGE difficulty recalling current events *MENTAL attention span and concentration abnormal and he distracts easily. *CN II optic fundi were normal, no papilledema noted. *CN III,IV, PERRLA extraocular eye movements were full, no nystagmus and no ptosis noted. *CN V shows normal sensation and jaw opens symmetrically. *CN VII shows normal facial movement symmetrically, upper and lower bilaterally. *CN VIII shows no significant hearing loss on exam *CN IX-X palate elevated symmetrically *CN XI normal strength in the sternocleidomastoid muscles, symmetrical shoulder shrugging. *CN XII tongue protruded in the midline, with normal strength and movement. *SENSORY EXAMINATION light touch intact *REFLEXES: deep tendon reflexes were normal and symmetrical , grade 1/4 diffusely, no pathological reflexes were noted. *CEREBELLAR TESTING normal finger to nose *PAIN LEVEL 0/10 - VTE Documentation of Mechanical Device: Intermittent pneumatic compression device Results - Laboratory Findings CBC and BMP: 06/02/19 04:54 06/02/19 04:54 Abnormal lab findings: Abnormal lab results RBC 3.61 M/mcL (4.19-5.50) L 06/02/19 04:54 Hgb 12.1 g/dL (12.9-16.9) L 06/02/19 04:54 Hct 36.0 % (37.5-50.1) L 06/02/19 04:54 MCV 101.4 fL (83.0-100.0) H 05/29/19 04:04 MCH 33.5 pg (28.0-33.3) H 06/02/19 04:54 Plt Count 114 K/mcL (140-400) L 06/02/19 04:54 Immature Plt Fraction 7.0 % (1.1-6.1) H 05/28/19 05:38 ESR 13 mm/hr (0-10) H 05/27/19 16:06 APTT 46.0 Seconds (26.0-36.0) H 05/27/19 10:27 Potassium 3.3 mEq/L (3.5-5.1) L 06/02/19 04:54 Chloride 108 mEq/L (98-107) H 06/02/19 04:54 Carbon Dioxide 20 mEq/L (23-29) L 05/31/19 06:29 BUN 36 mg/dL (8-23) H 05/31/19 06:29 Creatinine 1.35 mg/dL (0.70-1.30) H 05/30/19 14:13 Est GFR ( Amer) 50 (> 60) L 05/27/19 10:27 Est GFR (Non-Af Amer) 56 (> 60) L 05/31/19 06:29 BUN/Creatinine Ratio 30 (6-26) H 05/31/19 06:29 Glucose 113 mg/dL (70-105) H 05/30/19 14:13 POC Glucose 114 mg/dL (70-99) H 06/01/19 06:01 Calculated Osmolality 308 (280-300) H 05/28/19 05:38 Phosphorus 2.2 mg/dL (2.7-4.5) L 05/29/19 04:04 C-Reactive Protein 30 mg/L (Less than 10) H 05/27/19 16:06 Urine Clarity Cloudy (Clear) A 05/27/19 13:21 Urine Protein 100 mg/dL (Neg-Trace) H 05/27/19 13:21 Urine Ketones 15 mg/dL (Negative) H 05/27/19 13:21 Urine Blood Large (Negative) H 05/27/19 13:21 Urine Urobilinogen 2.0 mg/dL (Normal) H 05/27/19 13:21 Ur Leukocyte Esterase Moderate (Negative) H 05/27/19 13:21 Urine Microscopic RBC TNTC per hpf (0-3) H 05/27/19 13:21 Urine Microscopic WBC 15-30 per hpf (0-3) H 05/27/19 13:21 Ur Squamous Epith Cells Many per lpf (None-Few) H 05/27/19 13:21 Ur Culture Indicated? YES (NO) A 05/27/19 13:21 Consult Discharge Plan - Plan Referrals: Thiago Cid DO [Primary Care Provider] - Prescriptions: Amoxicillin/Clavulanate [Augmentin] 875 mg PO BIDWM 5 Days #10 tablet amLODIPine [Norvasc] 5 mg PO DAILY 30 Days #30 tablet Quetiapine Fumarate [Seroquel] 12.5 mg PO HS 30 Days #30 tablet Ondansetron ODT [Zofran ODT] 4 mg SL Q8HR PRN 30 Days #60 tab.rapdis PRN Reason: Nausea And Vomiting <Howard Miller I - Last Filed: 06/03/19 09:13> Date of Encounter: 06/02/19 Assessment and Plan (1) Delirium Status: Resolved I have personally performed a face to face diagnostic evaluation, including HPI, EXAM, which is included in the Assesment and plan, which was discussed with Cortez Anne CNP, I agree with the above outlined documentation. Howard Miller MD. NeurologyI Objective - Constitutional Vitals: Temp Pulse Resp BP Pulse Ox 98.2 F 102 19 143/91 95 06/02/19 15:40 06/02/19 15:40 06/02/19 15:40 06/02/19 15:40 06/02/19 15:40 Results - Laboratory Findings CBC and BMP: 06/02/19 04:54 06/02/19 04:54 Abnormal lab findings: Abnormal lab results RBC 3.61 M/mcL (4.19-5.50) L 06/02/19 04:54 Hgb 12.1 g/dL (12.9-16.9) L 06/02/19 04:54 Hct 36.0 % (37.5-50.1) L 06/02/19 04:54 MCV 101.4 fL (83.0-100.0) H 05/29/19 04:04 MCH 33.5 pg (28.0-33.3) H 06/02/19 04:54 Plt Count 114 K/mcL (140-400) L 06/02/19 04:54 Immature Plt Fraction 7.0 % (1.1-6.1) H 05/28/19 05:38 ESR 13 mm/hr (0-10) H 05/27/19 16:06 APTT 46.0 Seconds (26.0-36.0) H 05/27/19 10:27 Potassium 3.3 mEq/L (3.5-5.1) L 06/02/19 04:54 Chloride 108 mEq/L (98-107) H 06/02/19 04:54 Carbon Dioxide 20 mEq/L (23-29) L 05/31/19 06:29 BUN 36 mg/dL (8-23) H 05/31/19 06:29 Creatinine 1.35 mg/dL (0.70-1.30) H 05/30/19 14:13 Est GFR ( Amer) 50 (> 60) L 05/27/19 10:27 Est GFR (Non-Af Amer) 56 (> 60) L 05/31/19 06:29 BUN/Creatinine Ratio 30 (6-26) H 05/31/19 06:29 Glucose 113 mg/dL (70-105) H 05/30/19 14:13 POC Glucose 108 mg/dL (70-99) H 06/02/19 15:36 Calculated Osmolality 308 (280-300) H 05/28/19 05:38 Phosphorus 2.2 mg/dL (2.7-4.5) L 05/29/19 04:04 C-Reactive Protein 30 mg/L (Less than 10) H 05/27/19 16:06 Urine Clarity Cloudy (Clear) A 05/27/19 13:21 Urine Protein 100 mg/dL (Neg-Trace) H 05/27/19 13:21 Urine Ketones 15 mg/dL (Negative) H 05/27/19 13:21 Urine Blood Large (Negative) H 05/27/19 13:21 Urine Urobilinogen 2.0 mg/dL (Normal) H 05/27/19 13:21 Ur Leukocyte Esterase Moderate (Negative) H 05/27/19 13:21 Urine Microscopic RBC TNTC per hpf (0-3) H 05/27/19 13:21 Urine Microscopic WBC 15-30 per hpf (0-3) H 05/27/19 13:21 Ur Squamous Epith Cells Many per lpf (None-Few) H 05/27/19 13:21 Ur Culture Indicated? YES (NO) A 05/27/19 13:21
[2019-06-02] MEDS ORDERED: Insulin LISPRO 300 UNITS/3 ML VIAL SQ SCH ×2 (11:30→21:00)
--- NOTE | 2019-06-02 11:40 | Discharge Summary ---
Orders not resulted at time of discharge: Pending orders 05/27/19 16:06 Paraneoplastic Abs (PCCA/PEDRO PABLO) Stat 05/31/19 07:27 Sputum Culture [Culture,Sputum with Gram Stain] [] Stat Date of Encounter: 06/02/19 Time of Encounter: 11:37 - Discharge Diagnosis (1) Pneumonia Priority: Primary Status: Acute Qualifiers: Pneumonia type: aspiration pneumonia Aspiration pneumonia type: unspecified Laterality: left Lung location: lower lobe of lung Qualified Code(s): J69.0 - Pneumonitis due to inhalation of food and vomit (2) Delirium Priority: Primary Status: Resolved (3) Acute urinary retention Priority: Primary Status: Inactive (4) Bladder mass Priority: Secondary Status: Suspected (5) Thrombocytopenia Priority: Secondary Status: Chronic (6) Parkinson disease Priority: Secondary Status: Chronic (7) UTI (urinary tract infection) Priority: Secondary Status: Suspected Qualifiers: Urinary tract infection type: site unspecified Hematuria presence: without hematuria Qualified Code(s): N39.0 - Urinary tract infection, site not specified (8) Depression Priority: Secondary Status: Chronic Qualifiers: Depression Type: unspecified Qualified Code(s): F32.9 - Major depressive disorder, single episode, unspecified (9) HLD (hyperlipidemia) Priority: Secondary Status: Chronic Qualifiers: Hyperlipidemia type: unspecified Qualified Code(s): E78.5 - Hyperlipidemia, unspecified (10) Severe protein-calorie malnutrition Priority: Secondary Status: Chronic (11) Hypokalemia Priority: Secondary Status: Resolved Hospital course: Mr. Ibanez is a 89 year old male male with history of insomnia, nighttime confusion, and possibly dementia presents with encephalopathy and acute urinary retention. Head CT was within normal limits. Patient admitted to the hospital due to acute metabolic encephalopathy, possible secondary to UTI and urinary retention. Patient was managed with IV antibiotics. 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 Decompressed bladder with irregular bladder wall thickening likely related to chronic bladder outlet obstruction. Crespo catheter was placed and recommended outpatient follow within 2 weeks of hospital discharge for voiding trial and possible cystoscopy. During this admission patient had an episode of acute delirium, neurology was consulted and patient was started on quetiapine. A chest x-ray was done and patient was found to have a left lower lobe pneumonia. Due to high suspicious of aspiration a MBS was done: Aspiration with the thin barium consistency. No aspiration with the nectar thickened or applesauce consistencies. There is pharyngeal pooling with all sequences. Necktar thickened consistency recommended. Patient is hemodynamically stable to be discharged with SNF/ECF on oral antibiotics. - Time Spent with Patient Total time spent providing and/or coordinating discharge services: Time spent: Greater than 30 minutes (35) - Discharge Medications Prescriptions: New Amoxicillin/Clavulanate [Augmentin] 875 mg PO BIDWM 5 Days #10 tablet amLODIPine [Norvasc] 5 mg PO DAILY 30 Days #30 tablet Quetiapine Fumarate [Seroquel] 12.5 mg PO HS 30 Days #30 tablet Ondansetron ODT [Zofran ODT] 4 mg SL Q8HR PRN 30 Days #60 tab.rapdis PRN Reason: Nausea And Vomiting Continued Lovastatin 40 mg PO DAILY Discontinued Doxepin HCl 150 mg PO DAILY Home Medications: Lovastatin 40 mg PO DAILY 05/27/19 [History] Amoxicillin/Clavulanate [Augmentin] 875 mg PO BIDWM 5 Days #10 tablet 06/02/19 [Rx] Ondansetron ODT [Zofran ODT] 4 mg SL Q8HR PRN 30 Days #60 tab.rapdis 06/02/19 [Rx] Quetiapine Fumarate [Seroquel] 12.5 mg PO HS 30 Days #30 tablet 06/02/19 [Rx] amLODIPine [Norvasc] 5 mg PO DAILY 30 Days #30 tablet 06/02/19 [Rx] Allergies/Adverse Reactions: Allergy/AdvReac Type Severity Reaction Status Date / Time amitriptyline [From Elavil] Allergy Agitated Verified 01/21/16 13:07 carisoprodol [From Rela] Allergy Agitated Verified 01/21/16 13:07 hydromorphone [From Dilaudid] Allergy Agitated Verified 01/21/16 13:07 Date of admission: 05/27/19 16:08 Primary care physician: Joe Cid DO Consults: 05/27/19 16:25 Consult to Nutrition [CONS] Stat Comment: Consulting Provider: NUTRITION Reason for Dietary Consult: MST Score 05/28/19 09:58 Consult to Physical Therapy [CONS] Routine Comment: Evaluate, develop and implement POC Reason for Consult: genaralized weakness Does patient have active BEDREST order?: No Is patient medically & hemodynamically stable?: Yes 05/29/19 12:27 Consult to Neurology [CONS] Routine Consulting Provider: Neu[facility] Reason for Consult: possible moderate to severe dementia presenting with acute delirium in the setting of possible UTI Call Completed: No 05/30/19 10:12 Consult to Valance Cutter [CONS] Routine Reason for SW Consult: Patient will need placement. cannot take care of him at home 05/31/19 04:59 Consult to Speech Therapy [CONS] Routine Comment: Evaluate, develop and implement POC Reason for Consult: Nurse reports patient having difficulty swallowing pills. Please evaluate and treat. Call Completed: No - Constitutional Vitals: Temp Pulse Resp BP Pulse Ox 98.2 F 123 19 132/84 97 06/02/19 11:00 06/02/19 11:00 06/02/19 11:00 06/02/19 11:00 06/02/19 11:00 Exam: Vitals: Reviewed General: Alert and oriented x1. In no distress. Cardiovascular: RRR, normal S1 & S2, no rubs, murmurs or gallops. Lungs: CTA b/l, no wheezes or crackles. Abdomen: Soft, non-tender, no rigidity. NABS in all 4 quadrants Extremities: No edema Neurological: No focal neurological abnormalities Rest of the physical exam is non contributory - Patient Status Disposition: Transfer SNF Condition: Fair Functional capacity at discharge: uses cane/walker Overall status at discharge: patient is progressing back to baseline - Discharge Instructions Follow Up With: Thiago Cid DO [Primary Care Provider] - - Diet and Activity Activity: as per physical therapy Diet: other (nectar thicken or applesauce consistencies ) - VTE Documentation of Mechanical Device: Intermittent pneumatic compression device
--- NOTE | 2019-06-02 11:49 | Physician Discharge Referral ---
ExtendedCare Referral Info Transfer To: [facility] - Diagnosis (1) Pneumonia Priority: Primary Status: Acute (2) Delirium Priority: Primary Status: Resolved (3) Acute urinary retention Priority: Secondary Status: Inactive (4) Bladder mass Priority: Secondary Status: Suspected (5) Thrombocytopenia Priority: Secondary Status: Chronic (6) Parkinson disease Priority: Secondary Status: Chronic (7) UTI (urinary tract infection) Priority: Secondary Status: Suspected (8) Depression Priority: Secondary Status: Chronic (9) HLD (hyperlipidemia) Priority: Secondary Status: Chronic (10) Severe protein-calorie malnutrition Priority: Secondary Status: Chronic (11) Hypokalemia Priority: Secondary Status: Resolved Prognosis: Poor Aware of Diagnosis: Family Aware of Prognosis: Family - Transfer Medications Prescriptions: Amoxicillin/Clavulanate [Augmentin] 875 mg PO BIDWM 5 Days #10 tablet amLODIPine [Norvasc] 5 mg PO DAILY 30 Days #30 tablet Quetiapine Fumarate [Seroquel] 12.5 mg PO HS 30 Days #30 tablet Ondansetron ODT [Zofran ODT] 4 mg SL Q8HR PRN 30 Days #60 tab.rapdis PRN Reason: Nausea And Vomiting Home Medications: Lovastatin 40 mg PO DAILY 05/27/19 [History] Amoxicillin/Clavulanate [Augmentin] 875 mg PO BIDWM 5 Days #10 tablet 06/02/19 [Rx] Ondansetron ODT [Zofran ODT] 4 mg SL Q8HR PRN 30 Days #60 tab.rapdis 06/02/19 [Rx] Quetiapine Fumarate [Seroquel] 12.5 mg PO HS 30 Days #30 tablet 06/02/19 [Rx] amLODIPine [Norvasc] 5 mg PO DAILY 30 Days #30 tablet 06/02/19 [Rx] Allergies/Adverse Reactions: Allergy/AdvReac Type Severity Reaction Status Date / Time amitriptyline [From Elavil] Allergy Agitated Verified 01/21/16 13:07 carisoprodol [From Rela] Allergy Agitated Verified 01/21/16 13:07 hydromorphone [From Dilaudid] Allergy Agitated Verified 01/21/16 13:07 - Respiratory Orders None Smoking Cessation: Smoking cessation has been advised. For more information, call the [place] Tobacco Quit Line at 3-849-JKHX-NOW. - Advance Directives Code Status: Full Code - Mobility Orders Chair - Rehabiliation Orders Rehab Potential: Poor Rehab Orders: Evaluation for Physical Therapy, Evaluation for Occupational Therapy CERTIFICATION: I certify that the transfer of the above named patient to an Extended Care Facility is necessary for the continuing treatment of the diagnosis listed. The above information is true and accurate reflection of patient's current condition . Confidential - Redisclosure prohibited without a patient's written consent.
[2019-06-02 15:41] VITALS: BP 143/91
[2019-06-02] MEDS ORDERED: amLODIPine 5 MG TABLET PO ONE (17:16)
== END 2019-06-02 18:28 | DRG 177 ==
LOC: EMEROOARM 10:05 → 2ANU 10:05 → SUATTDRO 14:16 → 2ANU 15:04 → SUATTDRO 16:08
PROVIDERS: ADMIT Internal Medicine; ATTEND Internal Medicine